=== PATIENT | female | born 1970 | race Caucasian/White ===

== ENCOUNTER 2017-09-17 16:40 | Observation (INO) | payer BC, SELFPAY ==
[2017-09-17] VITALS (9 sets, daily range): BP systolic 111–131; BP diastolic 71–78; PULSE 57–80; RESP 11–19; TEMP 36.2–36.7; O2SAT 96–99; BMI 31.8; BMI 31.6
--- NOTE | 2017-09-17 16:52 | EKG12_ITS ---
Test Reason : CP Blood Pressure : / mmHG Vent. Rate : 065 BPM Atrial Rate : 065 BPM P-R Int : 132 ms QRS Dur : 090 ms QT Int : 396 ms P-R-T Axes : 025 051 057 degrees QTc Int : 411 ms Normal sinus rhythm Nonspecific ST abnormality Abnormal ECG Confirmed by DIANELYS REAL, ASHLEY ([id number]), legal editor BLANE DUENAS ([id number] on 09/23/2017 3:09:45 PM Referred By: HOLDEN Confirmed By:ASHLEY IVORY MD
[2017-09-17 17:10] LABS: Absolute Lymphocyte Count 2.59 X10^3/ul (0.83-4.51); Absolute Neutrophil Count 6.5 X10^3/uL (2.0-7.7); Basophil# 0.02 X10^3/uL; Basophil% 0.2 % (0-1); Eosinophil# 0.08 X10^3/uL; Eosinophils% 0.8 % (0-5); Hematocrit 44.3 % (37-47); Hemoglobin 14.6 g/dl (12.0-15.0); Lymphocyte # 2.59 X10^3/ul (4.0); Lymphocyte % 26.2 % (19-41); Mean Corpuscular Hgb 29.7 pg (27.0-32.0); Mean Corpuscular Volume 90.2 fL (81-99); Mean Platelet Vol. 12.3 fl (6.2-12.0); Monocyte# 0.72 X10^3/uL; Monocyte% 7.3 % (0-10); Neutrophil # 6.46 X10^3/uL (2.7-7.7); Neutrophil % 65.4 % (47-70); Platelet Count 194 K/mm3 (150-450); RBC Distribution Width SD 42.6 fl (35.1-43.9); Red Blood Count 4.91 M/mm3 (4.2-5.4); White Blood Count 9.9 K/mm3 (4.4-11.0)
--- NOTE | 2017-09-17 17:10 | RAD_ITS ---
STUDY: X-RAY CHEST REASON FOR EXAM: Female, 46 years old. Chest pain TECHNIQUE: Frontal view of the chest COMPARISON: 02/15/2016 FINDINGS: The lungs are clear. There are no pleural effusions. There is no pneumothorax. The heart is normal in size. The visualized osseous structures are within normal limits. RAD/Chest 1 View (Portable) IMPRESSION: No acute thoracic pathology. Electronically Signed: Livan Patel, at 17:46 EDT Tel , Service support ,
[2017-09-17 17:11] LABS: POSITIVE COUNT NO; POSITIVE DIFFERENTIAL NO; POSITIVE MORPHOLOGY NO
--- NOTE | 2017-09-17 17:17 | ED.VISSUMM ---
- ER Visit Summary Date of Service: 09/17/17 Chief Complaint: Chest tightness History of Present Illness: The patient is a 46 F with history of coronary vascular disease status post cardiac catheterization in 2013 with 75% stenosis of her first diagonal branch presents to the emergency department with chest tightness. Patient states she has been in her normal state of health. Over the past week, she is just been more fatigued. She states that over the past 2 days, she has been having a lot more chest tightness. Today, she states it just felt like there was bricks on both of my shoulders I was mildly nauseated. It did radiate into her left neck. She states she has never really had pain like this before. She does admit some palpitations and does have a remote history of SVT. Patient states that since her heart catheterization 2013, she has had approximately 70 pound weight loss. She does not smoke. She states that she has been otherwise rather healthy. Physical Examination: Vital signs reviewed General: Well-nourished, well-developed Head: Normocephalic, atraumatic Eyes: Pupils equal and reactive, extraocular muscles intact Neck, supple, no lymphadenopathy Heart: Regular rate and rhythm Respiratory: No distress, clear bilaterally Abdomen: Soft, nontender, nondistended, no peritoneal signs Back: Nontender Extremities: Nontender, no edema, no cords Skin: Normal color no rash Neuro: Alert and oriented, no focal or lateralizing deficits Test Results: [] Emergency Department Course and Treatment: EKG was obtained the patient arrival. There is no evidence of acute ischemic change. She has significant improvement with sublingual nitro. Screening labs including cardiac enzymes and chest x-ray are all unremarkable. However, given the patient's characterization of the pain, risk factors, and history of coronary vascular disease I do feel she will benefit from admission for cardiac risk stratification. Patient was discussed with the hospitalist and will be admitted. Treatment Plan: [] Disposition: Admission Impression: Chest pain This note was generated with [employer] dictation software. It may contain incorrect words, spelling, and punctuation that were not noted in review of the chart prior to signing ED Disposition - Plan for ED Patient: Chief Complaint: Chest Pain
[2017-09-17 17:24] LABS: Anion Gap 8 (5-15); BUN 28 mg/dL (7-18); BUN/Creat Ratio 27.5 RATIO (10-20); Calcium,Total 8.6 mg/dL (8.5-10.1); Chloride 104 mmol/L (98-107); Creatinine, Serum 1.02 mg/dL (0.55-1.02); EST Glomerular Filtration Rate 62 mL/min (>60); Est Glom Filt Rate - Afr Amer 75 mL/min (>60); Estimated Creatinine Clearance 62.01 ml/min; Glucose 126 mg/dL (74-106); Potassium 3.6 mmol/L (3.5-5.1); Sodium Level 139 mmol/L (136-145)
[2017-09-17] MEDS: Aspirin 81 MG TAB.CHEW 324 MG PO (17:52)
--- NOTE | 2017-09-17 18:32 | HP.PCM_ITS ---
Problem List (1) Obesity (BMI 30-39.9) Status: Chronic (2) PSVT (paroxysmal supraventricular tachycardia) Status: Chronic (3) cad Status: Chronic Comment: 75% ostial dx medical rx cath 10/13 History of Present Illness Date of Admission: 09/17/17 Chief Complaint: Chest pain The patient is a 46 year old F with past medical history of coronary artery disease status post left heart catheterization in 2013 that revealed 75% of diagonal 1 stenosis but this could not be stented she was placed on medical management. The patient presented to [facility] complain of fatigue and chest tightness she reports nausea. She reports no shortness of breath, palpitations or rapid heartbeat. Workup in the emergency room is thus far unremarkable placing her in the hospital for further management. Past Medical History Past Medical History (Chronic Problems): Chronic Problems cad (Chronic) 75% ostial dx medical rx cath 10/13 Obesity (BMI 30-39.9) (Chronic) PSVT (paroxysmal supraventricular tachycardia) (Chronic) Allergies Iodinated Contrast- Oral and IV Dye Allergy (Verified 02/28/15 19:42) Hives Home Medications: Ambulatory Orders Medication Instructions Recorded Aspirin 81 mg PO QHS 02/15/16 Atorvastatin Calcium 40 mg PO DAILY 09/17/17 Cimetidine 200 mg PO QHS 09/17/17 Lisinopril/Hydrochlorothiazide 1 tablet PO QHS 09/17/17 [Zestoretic 20/25 Tablet] Metoprolol Succinate [Toprol Xl] 50 mg PO QHS 09/17/17 Smoking Status: Never smoker - *Family History Maternal History Items: No pertinent history Review of Systems Comment: All Systems were reviewed with pertinent positives mentioned in the HPI above. VTE Information - Inpt Only VTE Present on Admission: No VTE Mechan Device Prophylaxis: SCD's VTE Pharm Prophylaxis ordered?: No - Physical Exam Vital Signs Temp Pulse Resp BP Pulse Ox 97.2 F L 74 19 H 124/74 H 99 09/17/17 16:42 09/17/17 18:02 09/17/17 18:02 09/17/17 18:02 09/17/17 18:02 Oxygen Delivery Method Room Air Weight: 86.9 kg Body Mass Index (BMI) 31.8 Laboratory Tests Past 24 Hrs 09/17/17 09/17/17 16:55 16:55 WBC 9.9 RBC 4.91 Hgb 14.6 Hct 44.3 MCV 90.2 MCH 29.7 MCHC 33.0 RDW 13.0 RDW Differential 42.6 Plt Count 194 MPV 12.3 H Immature Gran % (Auto) 0.100 Neut % (Auto) 65.4 Lymph % (Auto) 26.2 [place] % (Auto) 7.3 Eos % (Auto) 0.8 Baso % (Auto) 0.2 Absolute Neuts (auto) 6.5 Absolute Lymphs (auto) 2.59 Total Counted Not Reportable Sodium 139 Potassium 3.6 Chloride 104 Carbon Dioxide 27.0 Anion Gap 8 BUN 28 H Creatinine 1.02 Estim Creat Clear Calc 62.01 Est GFR (MDRD) Af Amer 75 Est GFR (MDRD) Non-Af 62 BUN/Creatinine Ratio 27.5 H Glucose 126 H Calcium 8.6 Troponin I < 0.02 Assessment/Plan 1. Chest pain; this most likely represents angina, known coronary artery disease with more than 75% blockage of head D1 artery, this was not a stentable lesion and she was prescribed medical management. we will obtain serial cardiac enzymes, I will Place her on long-acting nitrates . will enlist Dr. Landers opinion. 2. Known coronary artery disease with >75% diagonal one lesion diagnosed in 2013, continue medical management for now. 3. Obesity; the patient is in ACTION stage of change and is losing weight. 4. History of PSVT; she is on a beta-jayla. 5. Early ambulation for DVT prophylaxis. Code Visit OBSV E&M: 32859 Initial observation care L3
[2017-09-18] VITALS (9 sets, daily range): BP systolic 100–143; BP diastolic 59–80; PULSE 59–81; RESP 15–16; TEMP 36.6–36.9; O2SAT 97–99
--- NOTE | 2017-09-18 07:32 | STEWCON_ITS ---
Reason For Study: CHEST PAIN Stress Results Protocol: Jameel Protocol Maximum Predicted HR: 174 bpm Target HR: 148 bpm% Max imum Predicted HR: 89 % DurationHeart Rate Stage (mm:ss) (bpm) BP BASELINE 61 122/80 STAGE 1 3:00 10 1 138/62 STAGE 2 3:00 12 3 130/78 STAGE 3 3:00 15 5 152/70 RECOVERY 90 120/64 Stress Duration: 9:00 mm:ss Maximum Stress HR: 155 bpm Baseline Echocardiogram Findings The estimated ejection fraction is 65 %. Stress Echo Wall motion Data Resting WMIntermediate WMStress WM Resting Wall Motion Wall Motion Stress No regional wall motion No regional wall motion abnormalities noted. abnormalities noted. EKG Data Normal intervals are noted. The patient exercised according to the regular Jameel protocol for a total duration of 9:00. The maximum heart rate attained was 155 beats per minute. This was 89% of maximum predicted heart rate. The patient exercised into stage 4 of the Jameel protocol. During stress, there were no ST or T wave changes noted to suggest ischemia. No clinical angina was noted. Interpretation Summary The study was technically difficult. Contrast injection was performed. The estimated ejection fraction is 65 %. Normal adequate treadmill echocardiogram. Negative for ischemia by EKG and echocardiographic criteria. No anginal symptoms noted. Rare PVC noted. Appropriate blood pressure response to exercise. Average exercise capacity for age. Decreased sensitivity due to poor echo windows requiring Definity enhancing agent. Final LVEF is 75%. Test terminated due to the attainment of target heart rate. Ordering Physician: Serafin Betts Referring Physician: SERAFIN BETTS Performed By: Kelsea Delarosa, [place], RVT
--- NOTE | 2017-09-18 07:34 | ECHOD_ITS ---
Reason For Study: CHEST PAIN Procedure This was a 2D Doppler, Color Flow transthoracic echocardiogram. Exam performed portable in patient room. Left Ventricle Normal size and thickness. The estimated ejection fraction is 65 %. Normal diastology for age. No regional wall motion abnormalities noted. Right Ventricle Normal size and thickness. Normal systolic function. Atria Normal left atrium. Normal right atrium. Normal atrial septum. Mitral Valve The mitral valve is structurally normal. No prolapse or stenosis seen. Tricuspid Valve Normal tricuspid valve. Unable to estimate RV systolic pressure/pulmonary artery pressure due to technically difficult study. Aortic Valve Normal aortic valve. Trisinus/trileaflet aortic valve. Pulmonic Valve Normal pulmonic valve. Trivial pulmonic valve insufficiency. Great Vessels Normal aortic root. Normal arch. Normal inferior vena cava. Inferior vena cava collapse with sniff. Pericardium/Pleural No pericardial effusion. MMode/2D Measurements & Calculations LVIDd: 4.9 cm IVSd: 1.5 cm Ao root diam: 2.7 cm LVIDs: 3.5 cm LVPWd: 1.2 cm LA dimension: 4.3 cm RVDd: 3.1 cm FS: 28.9 % LAV(MOD-bp): 69.5 ml LA A4 area: 21.4 cm2 RA A4 area: 17.8 cm2 LAV(MOD-bp) Indexed: 35.9 ml/m2 LAV(MOD-sp2): 69.9 ml LAV(MOD-sp4): 68.8 ml Doppler Measurements & Calculations MV E max ruslan: 85.2 cm/sec Lat Peak E' Ruslan: 11.0 cm/sec Med Peak E' Ruslan: 7.4 cm/sec MV A max ruslan: 50.6 cm/sec E/E' lat: 7.8 E/E' med: 11.6 MV E/A: 1.7 Ao V2 max: 135.2 cm/sec LV V1 max: 99.6 cm/sec PA V2 max: 92.9 cm/sec Ao max P.3 mmHg LV V1 max P.0 mmHg PI end-d ruslan: 126.6 cm/sec Interpretation Summary The estimated ejection fraction is 65 %. Normal diastology for age. Unable to estimate RV systolic pressure/pulmonary artery pressure due to technically difficult study. Compared to echo report dated 10/18/2013, LV function has improved from 50% to 65%. Ordering Physician: Amor Betts Referring Physician: Keon Vaughn Performed By: Kelsea Delarosa RDCS, RVT
--- NOTE | 2017-09-18 07:41 | EKG12_ITS ---
Test Reason : ROUTINE Blood Pressure : / mmHG Vent. Rate : 055 BPM Atrial Rate : 055 BPM P-R Int : 130 ms QRS Dur : 090 ms QT Int : 428 ms P-R-T Axes : 003 044 055 degrees QTc Int : 409 ms Sinus bradycardia with sinus arrhythmia Confirmed by DIANELYS REAL, ASHLEY ([id number]), make up editor BLANE DUENAS ([id number]) on 09/19/2017 1:24:09 PM Referred By: DR VALDES Confirmed By:ASHLEY IVORY MD
[2017-09-18 07:58] LABS: Absolute Lymphocyte Count 2.47 X10^3/ul (0.83-4.51); Absolute Neutrophil Count 3.7 X10^3/uL (2.0-7.7); Basophil# 0.02 X10^3/uL; Basophil% 0.3 % (0-1); Eosinophils% 1.4 % (0-5); Hematocrit 44.4 % (37-47); Hemoglobin 14.5 g/dl (12.0-15.0); Lymphocyte # 2.47 X10^3/ul (4.0); Mean Corp Hgb Conc 32.7 g/gl (32-36); Mean Corpuscular Hgb 29.8 pg (27.0-32.0); Mean Corpuscular Volume 91.2 fL (81-99); Mean Platelet Vol. 12.5 fl (6.2-12.0); Monocyte# 0.76 X10^3/uL; Monocyte% 10.8 % (0-10); Neutrophil # 3.69 X10^3/uL (2.7-7.7); Neutrophil % 52.4 % (47-70); Platelet Count 181 K/mm3 (150-450); RBC Distribution Width CV 13.1 % (11.6-14.6); RBC Distribution Width SD 43.5 fl (35.1-43.9); Red Blood Count 4.87 M/mm3 (4.2-5.4); White Blood Count 7.1 K/mm3 (4.4-11.0)
[2017-09-18 07:59] LABS: POSITIVE COUNT NO; POSITIVE DIFFERENTIAL NO; POSITIVE MORPHOLOGY NO
[2017-09-18] MEDS: Lisinopril 20 MG Tablet PO (08:04)
[2017-09-18] MEDS: Aspirin 81 MG TAB.CHEW PO (08:04)
[2017-09-18 08:06] LABS: Anion Gap 9 (5-15); BUN 22 mg/dL (7-18); BUN/Creat Ratio 30.5 RATIO (10-20); Calcium,Total 8.6 mg/dL (8.5-10.1); Chloride 107 mmol/L (98-107); Creatinine, Serum 0.72 mg/dL (0.55-1.02); EST Glomerular Filtration Rate 92 mL/min (>60); Est Glom Filt Rate - Afr Amer 112 mL/min (>60); Estimated Creatinine Clearance 87.85 ml/min; Glucose 101 mg/dL (74-106); Sodium Level 142 mmol/L (136-145)
[2017-09-18 08:55] LABS: Prothrombin Time (Protime)PT. 13.6 SECONDS (11.7-14.9)
--- NOTE | 2017-09-18 09:08 | PCM.CONS.C ---
Problem List (1) Chest pain Status: Acute (2) cad Status: Chronic Comment: 75% ostial dx medical rx cath 10/13 (3) PSVT (paroxysmal supraventricular tachycardia) Status: Chronic Reason for Consult Date of Consultation: 09/18/17 Reason for Consultation: Chest pain, coronary artery disease, paroxysmal supraventricular tachycardia, hypercholesterolemia History of Present Illness: The patient is a 46 year old F, nondiabetic, with hypertension, hypercholesterolemia, originally presented in 2014 with substernal chest pain. She underwent an echocardiogram which showed mild global LV dysfunction with an EF of 50%. In addition I performed a left her catheterization on her in 2013 which demonstrated an ostial diagonal stenosis of about 60%. Given the ostial nature of the diagonal branch and the lack of disease in the LAD, patient's coronary disease with left for medical management. Unfortunately patient did not follow-up with me. Nonetheless, patient is not smoking cigarettes but occasionally smokes cigars, has had a 75 pound weight loss by avoidance of carbohydrates and red meat, exercises by punching on a punching bag and is asymptomatic up until the day of admission. Last week the patient had an episode of extreme tiredness and fatigue, felt run down and did not have much activity but had no chest pain symptoms. Yesterday the patient developed substernal chest pressure which she described as a heaviness radiating to her left shoulder also described as a heaviness. Patient had some very minimal shortness of breath associated with this, and apparently was with no exertion. When things did not improve she sought medical attention at [facility] ER. Her initial EKG showed normal sinus rhythm, no acute changes. She was admitted and ruled out for myocardial infarction with troponins negative ?4. This morning she underwent a 2D echo with Doppler which showed actually marked improvement of her LV function from 50% to 65%, unable to quantitate RVSP. Currently she is resting comfortably. Stress echocardiogram pending. The patient denied having any fevers, chills, flulike symptoms, cough or diarrhea last week to explain her feeling of being run down. The patient also apparently has a diagnosis by history of paroxysmal supraventricular tachycardia, and the patient is uncertain whether she had any palpitations but she does not think so. The patient does have a allergy to IV contrast dye, and should she require catheterization will need to be prepped for this. [] Past Medical History Allergies/Adverse Reactions: Allergies Iodinated Contrast- Oral and IV Dye Allergy (Verified 02/28/15 19:42) Hives Home Medications: Ambulatory Orders Medication Instructions Recorded Aspirin 81 mg PO QHS 02/15/16 Atorvastatin Calcium 40 mg PO DAILY 09/17/17 Cimetidine 200 mg PO QHS 09/17/17 Lisinopril/Hydrochlorothiazide 1 tablet PO QHS 09/17/17 [Zestoretic 20/25 Tablet] Metoprolol Succinate [Toprol Xl] 50 mg PO QHS 09/17/17 Past Medical History (Chronic Problems): Chronic Problems cad (Chronic) 75% ostial dx medical rx cath 10/13 Obesity (BMI 30-39.9) (Chronic) PSVT (paroxysmal supraventricular tachycardia) (Chronic) - *Family History Maternal History Items: No pertinent history Smoking Status: Never smoker Tobacco Use: Cigars Review of Systems - Review of Systems General: Denies: Fever, Night Sweats, Fatigue Cardiovascular: Denies: Chest Discomfort, Shortness of Breath, Orthopnea, PND, Peripheral Edema, Palpitations, Lightheadedness, Dizziness, Near Syncope, Syncope Respiratory: Denies: Cough, Sputum Production, Hemoptysis Gastrointestinal: Denies: Hematemesis, Hematochezia, Melena Genitourinary: Denies: Dysuria, Hematuria Skin: Denies: Rash Subjectve: Patient laying in bed, no acute distress. Objective: Vital Signs Temp Pulse Resp BP Pulse Ox 97.9 F 75 16 143/73 H 99 09/18/17 08:00 09/18/17 08:00 09/18/17 08:00 09/18/17 08:00 09/18/17 08:00 Oxygen Delivery Method Room Air Weight: 190 lb 0.615 oz Body Mass Index (BMI) 31.6 Intake and Output for Last 24 Hours 09/16/17 09/17/17 09/18/17 23:59 23:59 23:59 Intake Total 220 / 220 120 / 120 Balance 220 / 220 120 / 120 General: Awake, Alert, Oriented x 3 HEENT: PERRL, EOMI, Sclera Non Icteric Neck: Supple, Good ROM, No Lymph Node Enlargement Lungs: Clear to auscultation Cardiovascular: Regular Rhythm, Normal S1, Normal S2, No Murmurs, No Rubs, No Gallops Vascular: No Carotid Bruits, Normal Femoral Pulses, Normal Radial Pulses, Normal Dorsalis Pedal Pulse, Normal Posterior Tibial Pulses Abdomen: Bowel Sounds Present, Soft, Non Tender, No HSM, No Organomegaly Extremities: No Cyanosis, No Clubbing, No edema Neurological: No Focal Motor or Sensory Deficit 09/17/17 20:30: Troponin I < 0.02 09/18/17 00:30: Troponin I < 0.02 09/18/17 06:35: Troponin I < 0.02 09/18/17 06:35: WBC 7.1, RBC 4.87, Hgb 14.5, Hct 44.4, MCV 91.2, MCH 29.8, MCHC 32.7, RDW 13.1, RDW Differential 43.5, Plt Count 181, MPV 12.5 H, Immature Gran % (Auto) 0.100, Neut % (Auto) 52.4, Lymph % (Auto) 35.0, [place] % (Auto) 10.8 H, Eos % (Auto) 1.4, Baso % (Auto) 0.3, Absolute Neuts (auto) 3.7, Total Counted Not Reportable 09/18/17 06:35: Sodium 142, Potassium 4.0, Chloride 107, Carbon Dioxide 26.0, Anion Gap 9, BUN 22 H, Creatinine 0.72, Est GFR (MDRD) Af Amer 112, Est GFR (MDRD) Non-Af 92, BUN/Creatinine Ratio 30.5 H, Glucose 101, Calcium 8.6 09/18/17 07:50: PT 13.6, INR 1.0, APTT 32.0 Rhythm: Normal sinus rhythm, no arrhythmias noted. EKG: As above ECHO: As above Stress Test: Pending Cardiac Cath: PCI: CT Surgery: Holter monitor: EPS: PPM: CXR: Chest CT Scan: Assessment/Plan 1. Chest pain: Patient developed atypical nonexertional substernal chest heaviness radiating to her shoulder with associated mild shortness of breath. This appeared to be mostly nonexertional, although the patient has not been feeling well over the last week, feeling rundown and tired. The patient's echocardiogram shows complete normalization of her LV function as opposed to her echo in 2014. Her EF is 65% and we were unable to quantitate her RVSP. Patient's troponins are negative ?4, but she has known ostial diagonal coronary artery disease which is been treated with medicines although she has had no follow-up with us in the office since that time. I recommend the patient undergo a treadmill echocardiogram to determine if she has any evidence of anterior lateral ischemia with respect to her previously known coronary disease of her diagonal branch. The patient has exertional symptoms, or evidence of anterior ischemia, I have a low threshold for repeating her diagnostic coronary angiogram and possibly pursuing balloon angioplasty and/or stenting of the ostium of the diagonal branch. Intervention of this area is somewhat problematic given the acute nature of the diagonal branch as the stent may prolapse into the LAD. In addition I recommend a test given her young age, as well as a CRP to determine if the patient has possible pericarditis to explain her symptoms. In addition the patient apparently has an IV contrast dye allergy, would require IV contrast dye allergy preparation such as Benadryl, IV Pepcid 20 mg, and Solu-Medrol 125 mg IV. In the meantime we will continue baby aspirin, Lopressor, Imdur, Zestril, and hydrochlorothiazide for her hypertension. Her blood pressure is optimized. 2. Hyperlipidemia: Recommend a fasting lipid profile with respect to her known coronary disease. Her LDL should be less than 70. Continue Lipitor. 3. Thank you very much for the opportunity to participate in the cardiac care of your patient. Consultation time took place between 845 and 915. Code Visit Inpatient E&M: 29148 Init Hosp L2
[2017-09-18 09:39] LABS: CRP, High Sensitivity Cardiac 0.71 mg/L; Cholesterol 148 mg/dL (200); High Density Lipoprotein 65 mg/dL; Triglycerides 76 mg/dL; Very Low Density Lipoprotein 15 mg/dL (5-40)
[2017-09-18] MEDS: hydroCHLOROthiazide 25 MG Tablet PO (11:11)
[2017-09-18] MEDS: Isosorbide Mononitrate 60 MG Tablet PO (11:11)
[2017-09-18] MEDS: Metoprolol(XL)Succ 50 MG Tablet PO (11:11)
[2017-09-18] MEDS: Famotidine 20 MG Tablet PO (11:11)
[2017-09-18 12:12] LABS: Internal QC Validated? YES +Cl - CLEAR BKGD; Pregnancy, Urine Negative Negative
--- NOTE | 2017-09-18 13:38 | PN_ITS ---
Patient Problems: Active and Suspected Problems Chest pain (Acute) Subjective: Pt reports chest discomfort is gone this AM. She states it was more a shoulder heaviness that felt like when she had her last cath. She is not SOB. She has no LH/dizziness, or Palp. Stress test is pending. She had prior cath with 60% blockage of ostial diagonal and medical therapy was advised at that time. - Physical Exam General: Alert, Oriented x3, Cooperative HEENT: Atraumatic, PERRLA, EOMI, Normocephalic Neck: Supple, No JVD, Negative Carotid Bruits Lungs: Clear to auscultation, Normal air movement Cardiovascular: Regular rate, No murmurs Abdomen: Bowel Sounds Present, Soft, Non Tender Extremities: No edema, Capillary Refill Less than 3 Seconds Skin: No rashes, No breakdown Musculoskeletal: No Tenderness to Palpation of Joints or Extremities Neurological: Cranial nerves II-XII grossly intact Psych/Mental Status: Normal Affect, Appropriate, Alert and oriented to time, place, person, mood and affect Vital Signs Temp Pulse Resp BP Pulse Ox 97.9 F 79 16 143/80 H 99 09/18/17 08:00 09/18/17 11:17 09/18/17 08:00 09/18/17 10:05 09/18/17 08:00 Oxygen Delivery Method Room Air Weight: 86.2 kg Body Mass Index (BMI) 31.6 Intake and Output for Last 24 Hours 09/16/17 09/17/17 09/18/17 23:59 23:59 23:59 Intake Total 220 / 220 360 / 360 Balance 220 / 220 360 / 360 Laboratory Tests Past 24 Hrs 09/17/17 09/18/17 09/18/17 20:30 00:30 06:35 WBC RBC Hgb Hct MCV MCH MCHC RDW RDW Differential Plt Count MPV Immature Gran % (Auto) Neut % (Auto) Lymph % (Auto) [place] % (Auto) Eos % (Auto) Baso % (Auto) Absolute Neuts (auto) Absolute Lymphs (auto) Total Counted PT INR APTT Sodium Potassium Chloride Carbon Dioxide Anion Gap BUN Creatinine Estim Creat Clear Calc Est GFR (MDRD) Af Amer Est GFR (MDRD) Non-Af BUN/Creatinine Ratio Glucose Calcium Troponin I < 0.02 < 0.02 < 0.02 C-React Prot High Sens Triglycerides Cholesterol LDL Cholesterol VLDL Cholesterol HDL Cholesterol Urine Test 09/18/17 09/18/17 09/18/17 06:35 06:35 07:50 WBC 7.1 RBC 4.87 Hgb 14.5 Hct 44.4 MCV 91.2 MCH 29.8 MCHC 32.7 RDW 13.1 RDW Differential 43.5 Plt Count 181 MPV 12.5 H Immature Gran % (Auto) 0.100 Neut % (Auto) 52.4 Lymph % (Auto) 35.0 [place] % (Auto) 10.8 H Eos % (Auto) 1.4 Baso % (Auto) 0.3 Absolute Neuts (auto) 3.7 Absolute Lymphs (auto) 2.47 Total Counted Not Reportable PT 13.6 INR 1.0 APTT 32.0 Sodium 142 Potassium 4.0 Chloride 107 Carbon Dioxide 26.0 Anion Gap 9 BUN 22 H Creatinine 0.72 Estim Creat Clear Calc 87.85 Est GFR (MDRD) Af Amer 112 Est GFR (MDRD) Non-Af 92 BUN/Creatinine Ratio 30.5 H Glucose 101 Calcium 8.6 Troponin I C-React Prot High Sens Triglycerides Cholesterol LDL Cholesterol VLDL Cholesterol HDL Cholesterol Urine Test 09/18/17 09/18/17 07:50 11:15 WBC RBC Hgb Hct MCV MCH MCHC RDW RDW Differential Plt Count MPV Immature Gran % (Auto) Neut % (Auto) Lymph % (Auto) [place] % (Auto) Eos % (Auto) Baso % (Auto) Absolute Neuts (auto) Absolute Lymphs (auto) Total Counted PT INR APTT Sodium Potassium Chloride Carbon Dioxide Anion Gap BUN Creatinine Estim Creat Clear Calc Est GFR (MDRD) Af Amer Est GFR (MDRD) Non-Af BUN/Creatinine Ratio Glucose Calcium Troponin I C-React Prot High Sens 0.71 Triglycerides 76 Cholesterol 148 LDL Cholesterol 68 VLDL Cholesterol 15 HDL Cholesterol 65 Urine Test Negative Medical Necessity - Tobacco Use Smoking Status: Never smoker Tobacco Use: Cigars Assessment/Plan Active and Suspected Problems Chest pain (Acute) 1. Chest pain with known CAD and blockage of ostial diagonal - Dr. Betts following. Nitrate added at admission and now no CP. Stress pending. EKG with sinus arrhythmia. Trop neg x 4. No events on cody. VSS. LDL 68. Continue asa, statin, HCTZ, Imdur, REE, Toprol. If cath'd will need solumedrol, benadryl, pepcid for iodine allergy. 2. Hx PSVT - controlled 3. Obesity - in dietary program and recently has lost 75 pounds. DVT ppx: SCDs DC planning: pending results of stress/need for cath This patient was seen by Mj Hector PA-C under the supervision of Doctor Muniz.
--- NOTE | 2017-09-18 15:50 | PCM.DC ---
- Discharge Diagnoses Current Active Problems: Current Active and Chronic Problems Chest pain (Acute) You will use the following diet at home:: Cardiac Your food should be the consistency of: Regular Your liquids should be the consistency of: Regular/Thin Discharge Activity: Return to Normal Activity Allergies/Adverse Reactions: Allergies Iodinated Contrast- Oral and IV Dye Allergy (Verified 02/28/15 19:42) Hives Medications to take at Discharge Aspirin 81 mg PO QHS 02/15/16 Atorvastatin Calcium 40 mg PO DAILY 09/17/17 Cimetidine 200 mg PO QHS 09/17/17 Lisinopril/Hydrochlorothiazide [Zestoretic 20/25 Tablet] 1 tablet PO QHS 09/17/17 Metoprolol Succinate [Toprol Xl] 50 mg PO QHS 09/17/17 Isosorbide Mononitrate [Imdur] 30 mg PO DAILY #30 tab 09/18/17 The following prescriptions were given: Isosorbide Mononitrate [Imdur] 30 mg PO DAILY #30 tab Primary Care Physician: Michael Rodríguez MD [STAFF PHYSICIAN] - Please follow up with your Primary Care Physician in: 1-2 weeks Please Follow Up With: Amor Betts MD When: 4 weeks Proposed Discharge Date: 09/18/17
--- NOTE | 2017-09-18 15:52 | PCM.DC.SUM ---
Discharge Date and Diagnosis - Problem List Patient Problems: Active and Suspected Problems Chest pain (Acute) Date of Admission: 09/17/17 Date of Discharge: 09/18/17 - Primary Discharge Diagnosis Active and Suspected Problems Chest pain (Acute) - angina HTN PSVT CAD Obesity - Secondary Discharge Diagnosis Chronic Problems cad (Chronic) 75% ostial dx medical rx cath 10/13 Obesity (BMI 30-39.9) (Chronic) PSVT (paroxysmal supraventricular tachycardia) (Chronic) Hospital Course and Treatment Imaging Results: Stress Echo: Interpretation Summary The study was technically difficult. Contrast injection was performed. The estimated ejection fraction is 65 %. Normal adequate treadmill echocardiogram. Negative for ischemia by EKG and echocardiographic criteria. No anginal symptoms noted. Rare PVC noted. Appropriate blood pressure response to exercise. Average exercise capacity for age. Decreased sensitivity due to poor echo windows requiring Definity enhancing agent. Final LVEF is 75%. Test terminated due to the attainment of target heart rate. Echo: Interpretation Summary The estimated ejection fraction is 65 %. Normal diastology for age. Unable to estimate RV systolic pressure/pulmonary artery pressure due to technically difficult study. Compared to echo report dated 10/18/2013, LV function has improved from 50% to 65%. RAD/Chest 1 View (Portable) IMPRESSION: No acute thoracic pathology. Consults: Alpesh - cardiology Operations: None Procedures: Stress test Summary of Care Provided: Physical exam on day of discharge: See daily progress note. Hospital course: The patient is a 46 year old F with a hx of CAD with known 60% stenosis of the ostial diagonal, pt of Dr. Betts, who also has HTN, Obesity with recent 70 lb weight loss on a diet plan, and PSVT, who presented to the ER with chest pain described as shoulder heaviness similar to her prior episode where was underwent heart cath. EKG was negative, troponin neg, CXR neg. She was admitted for CP rule out and since she had known coronary disease. This was found in 2013 by cath, for which medical treatment was advised at that time. Dr Betts was consulted. She was placed on imdur and maintained on tele, with repeat enzymes. Stress test was performed the following day. This was negative. She had no further chest discomfort. Dr. Betts advised her to follow up in 1 month. She was also advised to follow up with her PCP in 1-2 weeks. She was prescribed imdur 30 mg daily. She was discharged home in stable condition. This patient was seen by Mj Hector PA-C under the supervision of Doctor Flavio. [] Discharge Activity: Return to Normal Activity Home Medications: Medications to take at Discharge Aspirin 81 mg PO QHS 02/15/16 Atorvastatin Calcium 40 mg PO DAILY 09/17/17 Cimetidine 200 mg PO QHS 09/17/17 Lisinopril/Hydrochlorothiazide [Zestoretic 20/25 Tablet] 1 tablet PO QHS 09/17/17 Metoprolol Succinate [Toprol Xl] 50 mg PO QHS 09/17/17 Isosorbide Mononitrate [Imdur] 30 mg PO DAILY #30 tab 09/18/17 Following Prescrptions Were Given to Patient: Isosorbide Mononitrate [Imdur] 30 mg PO DAILY #30 tab Primary Care Physician: Michael Rodríguez MD [STAFF PHYSICIAN] - Please follow up with your Primary Care Physician in: 1-2 weeks Please Follow Up With: Amor Betts MD When: 4 weeks Medical Necessity - Tobacco Use Smoking Status: Never smoker Tobacco Use: Cigars Meaningful Use Info Meaningful Use Diagnoses (Choose all that apply): None applicable
--- NOTE | 2017-09-18 16:01 | DS.PCM_ITS ---
Discharge Date and Diagnosis - Problem List Patient Problems: Active and Suspected Problems Chest pain (Acute) Date of Admission: 09/17/17 Date of Discharge: 09/18/17 - Primary Discharge Diagnosis Active and Suspected Problems Chest pain (Acute) - angina HTN PSVT CAD Obesity - Secondary Discharge Diagnosis Chronic Problems cad (Chronic) 75% ostial dx medical rx cath 10/13 Obesity (BMI 30-39.9) (Chronic) PSVT (paroxysmal supraventricular tachycardia) (Chronic) Hospital Course and Treatment Imaging Results: Stress Echo: Interpretation Summary The study was technically difficult. Contrast injection was performed. The estimated ejection fraction is 65 %. Normal adequate treadmill echocardiogram. Negative for ischemia by EKG and echocardiographic criteria. No anginal symptoms noted. Rare PVC noted. Appropriate blood pressure response to exercise. Average exercise capacity for age. Decreased sensitivity due to poor echo windows requiring Definity enhancing agent. Final LVEF is 75%. Test terminated due to the attainment of target heart rate. Echo: Interpretation Summary The estimated ejection fraction is 65 %. Normal diastology for age. Unable to estimate RV systolic pressure/pulmonary artery pressure due to technically difficult study. Compared to echo report dated 10/18/2013, LV function has improved from 50% to 65 %. RAD/Chest 1 View (Portable) IMPRESSION: No acute thoracic pathology. Consults: Alpesh - cardiology Operations: None Procedures: Stress test Summary of Care Provided: Physical exam on day of discharge: See daily progress note. Hospital course: The patient is a 46 year old F with a hx of CAD with known 60% stenosis of the ostial diagonal, pt of Dr. Betts, who also has HTN, Obesity with recent 70 lb weight loss on a diet plan, and PSVT, who presented to the ER with chest pain described as shoulder heaviness similar to her prior episode where was underwent heart cath. EKG was negative, troponin neg, CXR neg. She was admitted for CP rule out and since she had known coronary disease. This was found in 2013 by cath, for which medical treatment was advised at that time. Dr eBtts was consulted. She was placed on imdur and maintained on tele, with repeat enzymes. Stress test was performed the following day. This was negative. She had no further chest discomfort. Dr. Betts advised her to follow up in 1 month. She was also advised to follow up with her PCP in 1-2 weeks. She was prescribed imdur 30 mg daily. She was discharged home in stable condition. This patient was seen by Mj Hector PA-C under the supervision of Doctor Flavio. [] Discharge Activity: Return to Normal Activity Home Medications: Medications to take at Discharge Aspirin 81 mg PO QHS 02/15/16 Atorvastatin Calcium 40 mg PO DAILY 09/17/17 Cimetidine 200 mg PO QHS 09/17/17 Lisinopril/Hydrochlorothiazide [Zestoretic 20/25 Tablet] 1 tablet PO QHS Metoprolol Succinate [Toprol Xl] 50 mg PO QHS 09/17/17 Isosorbide Mononitrate [Imdur] 30 mg PO DAILY #30 tab 09/18/17 Following Prescrptions Were Given to Patient: Isosorbide Mononitrate [Imdur] 30 mg PO DAILY #30 tab Primary Care Physician: Michael Rodríguez MD [STAFF PHYSICIAN] - Please follow up with your Primary Care Physician in: 1-2 weeks Please Follow Up With: Amor Betts MD When: 4 weeks Medical Necessity - Tobacco Use Smoking Status: Never smoker Tobacco Use: Cigars Meaningful Use Info Meaningful Use Diagnoses (Choose all that apply): None applicable
== END 2017-09-18 15:51 | disposition home or self-care (01) ==
LOC: ED 18:33 → PCU 18:39
PROVIDERS: Internal Medicine Cardiovascular Disease; Admitting Provider Internal Medicine; Emergency Provider Emergency Medicine; Family Provider Family Medicine; PCP Family Medicine; Visit Provider Internal Medicine
DX: R07.89 Other chest pain (principal); I25.10 Atherosclerotic heart disease of native coronary artery without angina pectoris; I47.1 Supraventricular tachycardia; F17.290 Nicotine dependence, other tobacco product, uncomplicated; E66.9 Obesity, unspecified; E78.5 Hyperlipidemia, unspecified; Z68.31 Body mass index [BMI] 31.0-31.9, adult; Z71.3 Dietary counseling and surveillance; Z79.899 Other long term (current) drug therapy; Z79.82 Long term (current) use of aspirin
CPT/HCPCS: 36415; 71045; 80048; 80061; 81025; 84484; 85025; 85610; 85730; 86141; 93005; 93017; 93306; 93350; 99218; 99285; 99406; Q9957; A4216; C8928; G0378

== ENCOUNTER 2023-07-09 14:41 | Emergency (ER) | payer OTHER, SELFPAY ==
[2023-07-09 14:41] VITALS: BP 164/83; PULSE 78; RESP 16; TEMP 36.6; O2SAT 99; BMI 30.9
--- NOTE | 2023-07-09 15:12 | US_ITS ---
STUDY: ULTRASOUND TRANSVAGINAL CLINICAL: Female, 52 years old. Pelvic pain, enlarged uterus on bimanual TECHNIQUE: Transvaginal COMPARISON: None. FINDINGS: Normal uterine size measuring 7.7 x 5.6 x 4.1 cm in maximal craniocaudal dimension. There are no myometrial masses. Normal endometrial thickness measuring 7 mm. There are no endometrial masses, and there is no fluid in the endometrial cavity. Nabothian cyst of the uterine cervix. Normal right ovary, measuring 2.9 x 2.2 x 1.1 cm. There is 0.8 cm cyst. There is normal blood flow. Normal left ovary, measuring 2.2 x 1.1 x 1.1 cm. There are multiple follicles without a dominant cyst. There is normal blood flow. There is no free fluid in the pelvis. Polycystic ovary disease: No. US/Transvaginal Non- IMPRESSION: No definite acute or significant abnormality seen. Electronically Signed: Ranjeet Ferrera MD at 16:45 EST ,
--- NOTE | 2023-07-09 15:29 | ED.VIS.FEGU ---
HPI HPI - Female History of Present Illness Chief Complaint: Female C/O Detail of Chief Complaint: Concern for prolapsed uterus Informant: patient Pain Pain: Positive for Pelvic Pain Onset: Yesterday Timing: Continuous and Waxes and wanes Quality: Positive for Aching Current Severity: Mild Maximum Severity: Moderate Bleeding Issue: Negative for Vaginal bleeding Associated Symptoms Associated Symptoms: Positive for Frequency and Urgency; Negative for Dysuria or Hematuria Sexually: Positive for Active P: 3 Narrative Narrative: Patient is a 52-year-old woman who presents because of concern for prolapsed uterus. She had some discomfort yesterday. This morning she noted a bulge when she stood. She has discomfort in the pelvic area. She does have urgency and frequency. She feels that she does not completely void. She has not seen a show host/hostess in some time. She is diabetic and does not check her blood sugar regularly. She does endorse polyuria, polydipsia and nocturia as well as frequency. She denies fever, chills night sweats. She denies nausea, vomiting or diarrhea. She denies constipation. She has no history of abdominal surgery. She denies back or flank pain. Prior similar symptoms: No Recent Illness/Hospitalization: No PFSH PFSH Medical History Diabetes Hypertension Past heart attack Home Medications aspirin 81 mg chewable tablet 81 mg PO QHS health maintenance 02/15/16 [History Last Taken 09/16/17] cimetidine 200 mg tablet 200 mg PO QHS stomach acid 09/17/17 [History Last Taken 09/16/17] Allergy/AdvReac Type Severity Reaction Status Date / Time Iodinated Contrast Media Allergy Hives Verified 07/09/23 14:43 Social History (Updated 07/09/23 @ 15:[address] Marcus Castañeda MD) household members: spouse Smoking Status: Never smoker ROS ROS ED Constitutional Constitutional ED: Denies chills, fever(s), subjective or sweats Cardiovascular Cardiovascular: Denies chest pain or palpitations Respiratory/Chest Respiratory/Chest: Denies cough, dyspnea or dyspnea on exertion Gastrointestinal Gastrointestinal: Reports abdominal pain; Denies diarrhea, melena, nausea or vomiting Genitourinary Genitourinary ED: Reports urinary frequency; Denies dysuria or hematuria Musculoskeletal Musculoskeletal: Denies arthralgias, myalgias or neck pain Integumentary Denies rash Neurologic Neurologic: Denies headache(s), paresthesias or weakness Endocrine Endocrinology: Reports polydipsia and polyuria Hematologic/Lymphatic Hematologic/Lymphatic: Denies easy bleeding or easy bruising EXAM Physical Exam Const Vital Signs: 07/09/23 14:41 07/09/23 16:41 Temperature 97.8 F Temperature Source Temporal Pulse Rate 78 79 Respiratory Rate 16 16 Blood Pressure 164/83 H 159/89 H Blood Pressure Mean 110 112 Pulse Ox 99 99 Oxygen Delivery Method Room Air Room Air Positive well nourished and well developed General Appearance ED: well developed and NAD; Negative for pallor HEENT Reports moist mucous membranes HEENT Narrative: Head is atraumatic and normocephalic. Eyes PERRL and EOMs intact bilaterally General Eye ED: Negative for pale conjunctiva or scleral icterus Neck supple and no JVD Resp normal respiratory effort and clear to auscultation bilaterally Cardio regular rate, regular rhythm, S1 normal heart sound, no murmurs and no JVD GI normal to inspection, nondistended, normoactive bowel sounds, soft to palpation, non-distended and no masses; Negative for non-tender Palpation: tender suprapubic Narrative: Urethra appears normal. There appears to be a cystocele. Vaginal mucosa and cervical mucosa are atrophied. Bimanual exam elicited tenderness with pressure against the cervix. The uterus is large. Since patient is complaining of pain and has an enlarged uterus has not seen a show host/hostess in years we will obtain a pelvic ultrasound. Since she has symptoms of hyperglycemia we will obtain a BGT. Back/Spine no CVA tenderness Thoracic Spine / Upper Back: Negative for thoracic spinal tenderness Lumbar Spine / Lower Back: Negative for lumbar spinal tenderness Extremity normal to inspection and full ROM Neuro oriented x3, CN's II-XII intact bilaterally and no sensory deficits noted Sensorium / Orientation: alert Skin no rashes or lesions noted and no wounds General Skin Exam: Negative for jaundice or pallor MDM MDM MDM Narrative Medical decision making narrative: Patient has a cystocele will need referred to DERMATOLOGICAL SURGEON. Will obtain BGT to assess blood sugar since she is not not compliant with checking her blood sugar and diet. Also will obtain ultrasound because of the enlarged uterus on bimanual exam. Differential may be fibroids, neoplasm Lab Data Attestation: I reviewed the patient's lab results. Lab results narrative: White count is normal. BMP is remarkable glucose of 645 with normal CO2 anion gap. Urine is positive for glucose urea and leukoesterase. She does have evidence of pyuria without bacteriuria. Labs: Laboratory Results - last 24 hr 07/09/23 07/09/23 15:44 15:50 WBC 6.1 RBC 4.90 Hgb 14.5 Hct 42.5 MCV 86.7 MCH 29.6 MCHC 34.1 RDW Std Deviation 38.3 RDW Coeff of Nohelia 11.9 Plt Count 145 L MPV 13.0 H Immature Gran % (Auto) 0.200 Neut % (Auto) 66.2 Lymph % (Auto) 25.7 [place] % (Auto) 6.9 Eos % (Auto) 0.7 Baso % (Auto) 0.3 Absolute Neuts (auto) 4.0 Absolute Lymphs (auto) 1.56 Nucleated RBC % 0 Sodium 133 L Potassium 4.1 Chloride 102 Carbon Dioxide 25.0 Anion Gap 6 BUN 13 Creatinine 0.87 Estim Creat Clear Calc 81.19 Est GFR (MDRD) Af Amer 87 Est GFR (MDRD) Non-Af 72 BUN/Creatinine Ratio 14.9 Glucose 645 H* Calcium 9.6 Urine Color Straw Urine Clarity Clear Urine pH 6.0 Ur Specific [place] 1.010 Urine Protein Negative Urine Glucose (UA) 1000 H Urine Ketones Negative Urine Occult Blood Negative Urine Nitrite Negative Urine Bilirubin Negative Urine Urobilinogen Normal Ur Leukocyte Esterase 100 H Urine RBC 0 SEEN Urine WBC 10-25 SEEN Ur Squamous Epith Cells 0-5 SEEN Urine Bacteria 0 SEEN Urine Mucus 0 SEEN Patient was informed of her laboratory results. She informed that she has not been taking her oral diabetic meds. She was informed of the importance of taking her medicine and what the potential complications are. She was referred to Dr. Geri Jeffers for cystocele since she does not have a DERMATOLOGICAL SURGEON and Dr. Geri Jeffers is on-call for DERMATOLOGICAL SURGEON. Radiography Diagnostic Testing: Clinical Impression(s) from Imaging Studies Transvaginal US 07/09/23 15:12 IMPRESSION: No definite acute or significant abnormality seen. Electronically Signed: Ranjeet Ferrera MD at 16:45 EST , Ultrasound report was read. Discharge Plan Triage Chief Complaint: Female C/O Other Complaint: Complaint ED Provider: Marcus Castañeda Dx/Rx/DC Orders Clinical Impression: Cystocele, Obesity (BMI 30-39.9), Hyperglycemia due to type 2 diabetes mellitus Instructions: Anatomy of the Female Urinary Tract, ED Diabetic Hyperglycemia, ED Diet: Diabetes Prescriptions: No Action aspirin 81 MG tablet,chewable 81 mg PO QHS cimetidine 200 MG tablet 200 mg PO QHS Primary Care Provider: Keon Vaughn Referrals: Keon Vaughn MD [Primary Care Provider] - 1 Week Geri Jeffers MD [Med Staff - Active Staff] - 1-2 Weeks Activity Restrictions/Additional Instructions: 1. You will need to follow-up with your doctor for further testing and education regarding the importance of compliance with your diet and medication for your diabetes. 2. You are referred to Dr. Geri Jeffers regarding your cystocele. Disposition Disposition: Home, Self Care
[2023-07-09 15:58] LABS: Bacteria 0 SEEN /hpf (None Seen); Mucous, Urine 0 SEEN /hpf (<or=2+); Red Blood Cells-Urine 0 SEEN /hpf (0-5)
[2023-07-09 16:10] LABS: Color, Urine Straw (Yellow); Glucose, Dipstick 1000 mg/dl (Normal); Ketone-Dipstick Negative (Negative); Leukocyte Esterase-Dipstick 100 /ul (Negative); Nitrite-Dipstick Negative (Negative); Occult Blood-Urine Negative /ul (Negative); Protein-Dipstick Negative (Negative); Urine Bilirubin Dipstick Negative (Negative); Urine Clarity Clear (Clear); Urine Urobilinogen Normal (Normal)
[2023-07-09 16:11] LABS: Absolute Lymphocyte Count 1.56 X10^3/uL (0.83-4.51); Basophil# 0.02 X10^3/uL; Basophil% 0.3 % (0-1); Eosinophil# 0.04 X10^3/uL; Eosinophils% 0.7 % (0-5); Hematocrit 42.5 % (37-47); Hemoglobin 14.5 g/dL (12.0-15.0); Lymphocyte # 1.56 X10^3/ul (0.83-4.51); Lymphocyte % 25.7 % (19-41); Mean Corp Hgb Conc 34.1 g/dL (32-36); Mean Corpuscular Hgb 29.6 pg (27.0-32.0); Mean Corpuscular Volume 86.7 fL (81-99); Monocyte# 0.42 X10^3/uL; Monocyte% 6.9 % (0-10); NRBC Flagged by Analyzer 0 % (0-5); Neutrophil # 4.02 X10^3/uL (2.7-7.7); Neutrophil % 66.2 % (47-70); Platelet Count 145 K/mm3 (150-450); RBC Distribution Width CV 11.9 % (11.6-14.6); RBC Distribution Width SD 38.3 fl (35.1-43.9); White Blood Count 6.1 K/mm3 (4.4-11.0)
[2023-07-09 16:15] LABS: Squamous Epithelial Cells - UA 0-5 SEEN /hpf (5-10); White Blood Cells 10-25 SEEN /hpf (0-5)
[2023-07-09 16:27] LABS: Anion Gap 6 (5-15); BUN 13 mg/dL (7-18); BUN/Creat Ratio 14.9 RATIO (10-20); Calcium,Total 9.6 mg/dL (8.5-10.1); Chloride 102 mmol/L (98-107); Creatinine, Serum 0.87 mg/dL (0.55-1.02); EST Glomerular Filtration Rate 72 mL/min (>60); Est Glom Filt Rate - Afr Amer 87 mL/min (>60); Estimated Creatinine Clearance 81.19 ml/min; Glucose 645 mg/dL (74-106); Potassium 4.1 mmol/L (3.5-5.1); Sodium Level 133 mmol/L (136-145)
[2023-07-09 16:41] VITALS: BP 159/89; PULSE 79; RESP 16; O2SAT 99
[2023-07-09 17:22] VITALS: BP 146/78; PULSE 66; RESP 16; TEMP 36.4; O2SAT 99
== END 2023-07-09 17:23 | disposition home or self-care (01) ==
PROVIDERS: Emergency Provider Emergency Medicine; PCP Family Medicine; Visit Provider Emergency Medicine
DX: N81.10 Cystocele, unspecified (principal); E11.65 Type 2 diabetes mellitus with hyperglycemia; E66.9 Obesity, unspecified; I10 Essential (primary) hypertension; Z79.82 Long term (current) use of aspirin; Z68.30 Body mass index [BMI] 30.0-30.9, adult
CPT/HCPCS: 76830; 80048; 81001; 85025; 99284; A4216

== ENCOUNTER 2025-01-07 19:33 | Emergency (ER) | payer OTHER, SELFPAY ==
[2025-01-07 19:34] VITALS: BP 169/102; PULSE 81; RESP 16; TEMP 36.4; O2SAT 100; BMI 28.7
--- NOTE | 2025-01-07 20:12 | EKG12_ITS ---
Test Reason : CHEST DISCOMFORT Blood Pressure : */* mmHG Vent. Rate : 75 BPM Atrial Rate : 75 BPM P-R Int : 142 ms QRS Dur : 84 ms QT Int : 388 ms P-R-T Axes : 33 42 62 degrees QTcB Int : 433 ms Normal sinus rhythm Normal ECG Confirmed by TEJA REAL, DALE ([id number]), manager editorial TERESA MCKEON ([id number]) on 01/10/2025 1:07:46 PM Referred By: HOLDEN Confirmed By: DALE LEZAMA MD
--- NOTE | 2025-01-07 20:18 | ED.VIS.CHEST ---
HPI History of Present Illness Chief Complaint: Chest Pain Narrative Narrative: Chief complaint and HPI: Chest pain. 54-year-old female with past medical history of DM2 who does not regularly take her metformin presents for evaluation of chest pain. Patient states she has been having midsternal chest/upper epigastrium discomfort long for the past week. States it comes and goes. States it is not true pain or any discomfort that makes her feel bloated and as if she needs to burp. She denies dyspnea or abdominal pain. She states for the past several days she has not generalized weakness and occasional shortness of breath. She is concerned maybe she has a UTI although denies dysuria or frequency. No history of HTN, CLD, CHKD. Non-smoker. Review of systems: See HPI Medications: As listed on the chart Allergies: As listed on the chart PFSH: Per chart Vital signs: As listed on the chart. Reviewed. Physical exam: Gen: A&O x3, NAD Head: Normocephalic, atraumatic Eyes: No sclera icterus, conjunctiva clear. ENT: Moist mucous membranes Neck: Trachea midline, No JVD CV: RRR, no murmurs, no peripheral edema Resp: Lungs CTA BL, no w/r/c GI: Abd soft, non-distended, non-tender, no r/r/g Musc: Full ROM, no deformity Skin: Warm, dry Neuro: Alert, oriented, grossly intact, sensation intact Psych: Cooperative, appropriate mood and affect [facility] Medical History Diabetes Hypertension Past heart attack Home Medications ?Medication ?Instructions ?Recorded ?Last Taken ?Type aspirin 81 mg chewable tablet 81 mg PO HS health maintenance 02/15/16 09/16/17 History metformin 1,000 mg tablet 1,000 mg PO BID 30 days #60 tabs 01/07/25 Unknown Rx metformin 500 mg tablet 1,000 mg PO BID 01/07/25 Unknown History Allergy/AdvReac Type Severity Reaction Status Date / Time Iodinated Contrast Media Allergy Hives Verified 01/07/25 19:37 Social History (Updated 07/09/23 @ 15:[address] Marcus Castañeda MD) household members: spouse Smoking Status: Never smoker EXAM Physical Exam Const Vital Signs: 01/07/25 19:34 01/07/25 19:34 01/07/25 20:34 Temperature 97.6 F L Temperature Source Temporal Pulse Rate 81 76 Respiratory Rate 16 18 Respiratory Effort Normal Non-Labored Blood Pressure 169/102 H 157/97 H Blood Pressure Mean 124 117 Pulse Ox 100 95 Oxygen Delivery Method Room Air Room Air 01/07/25 21:00 01/07/25 22:00 Temperature Temperature Source Pulse Rate 70 75 Respiratory Rate 18 15 Respiratory Effort Blood Pressure 142/90 H 154/95 H Blood Pressure Mean 107 114 Pulse Ox 98 97 Oxygen Delivery Method Room Air Room Air MDM MDM MDM Narrative Medical decision making narrative: 54-year-old female with medical history of DM2 who does not regularly take her metformin presents for evaluation of chest pain. Patient states she has been having midsternal chest/upper epigastrium discomfort long for the past week. States it comes and goes. States it is not true pain or any discomfort that makes her feel bloated and as if she needs to burp. Associated symptom is generalized weakness and occasional shortness of breath. Denies URI symptoms. Concern for UTI. On presentation, patient no acute distress. Vitals are stable other than hypertension. Patient states she has no history of hypertension. This may be a false error. Will repeat. Differential diagnosis includes but is not limited to GERD, ACS, biliary pathology, electrolyte abnormality, UTI, viral illness, untreated HTN. Aspirin and Pepcid ordered. Laboratory workup ordered including chest x-ray. EKG and chest x-ray reviewed see below. CBC without leukocytosis or anemia. D-dimer unremarkable. BMP relatively unremarkable except for hyperglycemia of 529. No LISBETH. Patient is a diabetic who does not take her metformin regularly. NS bolus and IV insulin ordered. No transaminitis. Lipase unremarkable. Troponin negative x 2. UA negative for UTI positive for glucose. Patient again is not diabetic. At this point in time, no clear etiology for her chest pain. Per the heart score she is low risk given a score of 2. On reevaluation, patient not having any chest pain. Her repeat glucose has improved to 366. Patient stable to discharge home. Patient was educated that she needs to take her metformin as prescribed. She states she recently lost her PCP and is almost out of her prescription. Will refill the prescription. She was told she needs to reestablish with her primary care physician. Return precautions explained. She confirmed understand the plan. Patient stable to discharge home. EKG: Interpreted by me/EM physician: EKG shows normal sinus rhythm without any acute ischemic changes. Heart rate 75 Diagnostic: Interpreted by me/EM physician: Chest x-ray doubt pneumonia, effusion, cardiomegaly, pneumothorax Impression: 1. Chest pain 2. Hyperglycemia with known diabetic, noncompliant with medication Lab Data Labs: Laboratory Results - last 24 hr 01/07/25 01/07/25 01/07/25 19:20 19:45 20:40 WBC 7.0 RBC 5.11 Hgb 15.2 H Hct 44.8 MCV 87.7 MCH 29.7 MCHC 33.9 RDW Std Deviation 39.7 RDW Coeff of Nohelia 12.4 Plt Count 209 MPV 12.6 H Immature Gran % (Auto) 0.300 Neut % (Auto) 59.1 Lymph % (Auto) 31.1 [place] % (Auto) 7.9 Eos % (Auto) 0.9 Baso % (Auto) 0.7 Absolute Neuts (auto) 4.1 Absolute Lymphs (auto) 2.17 Nucleated RBC % 0 D-Dimer Quant (PE/DVT) 0.27 Sodium 132 L Potassium 4.4 Chloride 95 L Carbon Dioxide 21.4 Anion Gap 15 BUN 12 Creatinine 0.74 Estim Creat Clear Calc 89.88 Est GFR (MDRD) Non-Af 96 BUN/Creatinine Ratio 16.4 Glucose 529 H* Calcium 9.6 Total Bilirubin 0.33 AST 20 ALT 16 Alkaline Phosphatase 108 H Troponin T High Sens < 6 Troponin T Hi Sens 2 Hr Total Protein 7.4 Albumin 4.3 Globulin 3.1 Albumin/Globulin Ratio 1.4 Lipase 34 Urine Color Yellow Urine Clarity Clear Urine pH 7.0 Ur Specific [place] 1.010 Urine Protein 15 H Urine Glucose (UA) 1000 H Urine Ketones 5 H Urine Occult Blood Negative Urine Nitrite Negative Urine Bilirubin Negative Urine Urobilinogen Normal Ur Leukocyte Esterase Negative Urine RBC 0-5 SEEN Urine WBC 0-5 SEEN Ur Squamous Epith Cells 0 SEEN Urine Bacteria 0 SEEN Urine Mucus 0 SEEN POC Glucose 01/07/25 01/07/25 21:23 21:46 WBC RBC Hgb Hct MCV MCH MCHC RDW Std Deviation RDW Coeff of Nohelia Plt Count MPV Immature Gran % (Auto) Neut % (Auto) Lymph % (Auto) [place] % (Auto) Eos % (Auto) Baso % (Auto) Absolute Neuts (auto) Absolute Lymphs (auto) Nucleated RBC % D-Dimer Quant (PE/DVT) Sodium Potassium Chloride Carbon Dioxide Anion Gap BUN Creatinine Estim Creat Clear Calc Est GFR (MDRD) Non-Af BUN/Creatinine Ratio Glucose Calcium Total Bilirubin AST ALT Alkaline Phosphatase Troponin T High Sens Troponin T Hi Sens 2 Hr < 6 Total Protein Albumin Globulin Albumin/Globulin Ratio Lipase Urine Color Urine Clarity Urine pH Ur Specific [place] Urine Protein Urine Glucose (UA) Urine Ketones Urine Occult Blood Urine Nitrite Urine Bilirubin Urine Urobilinogen Ur Leukocyte Esterase Urine RBC Urine WBC Ur Squamous Epith Cells Urine Bacteria Urine Mucus POC Glucose 366 H Radiography Diagnostic Testing: Clinical Impression(s) from Imaging Studies Chest X-Ray 01/07/25 20:20 IMPRESSION: No acute chest findings. Reading Location: [place] [id number] Discharge Plan Triage Chief Complaint: Chest Pain ED Provider: Orlando Kirkpatrick Dx/Rx/DC Orders Clinical Impression: Chest pain, Hyperglycemia due to diabetes mellitus Instructions: Diabetes Support, ED Chest Pain, Uncertain Cause, ED Diabetes- Overview Prescriptions: New metformin 1,000 mg tablet 1,000 mg PO BID 30 Days Qty: 60 0RF No Action aspirin 81 MG tablet,chewable 81 mg PO QHS metformin 500 mg tablet 1,000 mg PO BID Primary Care Provider: Care Physician,No Primary Referrals: Cresencio Silver MD [Med Staff - Active Staff] - 3-5 Days Activity Restrictions/Additional Instructions: Follow-up with the primary care physician listed above or another primary care physician. Sent a new prescription for your metformin. Return back to the ED if symptoms change or worsen. You need to take your metformin as prescribed. Print Language: Citizen Of [place] Disposition Disposition: Home, Self Care
[2025-01-07 20:20] LABS: Hematocrit 44.8 % (37-47); Hemoglobin 15.2 g/dL (12.0-15.0); Immature Granulocytes Count 0.020 X10^3/uL (0.0-0.0); Mean Corp Hgb Conc 33.9 g/dL (32-36); Mean Corpuscular Volume 87.7 fL (81-99); Mean Platelet Vol. 12.6 fl (6.2-12.0); NRBC Flagged by Analyzer 0 % (0-5); Platelet Count 209 K/mm3 (150-450); RBC Distribution Width CV 12.4 % (11.6-14.6); RBC Distribution Width SD 39.7 fl (35.1-43.9); Red Blood Count 5.11 M/mm3 (4.2-5.4); White Blood Count 7.0 K/mm3 (4.4-11.0)
--- NOTE | 2025-01-07 20:20 | RAD_ITS ---
PROCEDURE: CHEST PA AND LATERAL 01/07/2025 REASON FOR EXAM: CHEST PAIN TECHNIQUE: CHEST PA AND LATERAL COMPARISON: No FINDINGS: Mild scoliosis. Normal heart size. Well inflated lungs. No consolidation, effusion, or pneumothorax. RAD/Chest PA and Lateral IMPRESSION: No acute chest findings. Reading Location: [place] [id number]
[2025-01-07] MEDS: Famotidine 200 MG/20 ML MDV 20 MG in 0.9% Normal Saline (Pres. free 8 ML 300 MG IV (20:33)
[2025-01-07 20:34] VITALS: BP 157/97; PULSE 76; RESP 18; O2SAT 95
[2025-01-07 20:37] LABS: D-Dimer Quantitative (DVT/PE) 0.27 FEU/ug/m (0.27-0.49)
[2025-01-07 20:48] LABS: Mucous, Urine 0 SEEN /hpf (<or=2+); Squamous Epithelial Cells - UA 0 SEEN /hpf (5-10)
--- OUTSIDE RECORDS SUMMARY | 2025-01-07 20:49 | XMS RPT_ITS | CCD ---
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 screening mammogram is recommended. Janine lezama/noe:10/06/2023 16:12:00 Wine Blender(s): RT Maddie(R)(M), [facility] letter sent: Normal over 40 Mammogram BI-RADS: 1 Negative Multiple national specialty organizations have released breast cancer screening guidelines for women at average risk for developing breast cancer - guidelines that are based on both evidence and opinion, yet differ on when to start and how often to screen for breast cancer. With representation from Breast Imaging, Internal Medicine, Women's Health, Family Medicine, and Medical/Surgical Oncology, the [facility] has carefully reviewed the data and reached the following consensus: 1) All women should engage in shared decision-making with their providers to decide when to start and how often to screen; 2) All women should have the opportunity to start screening mammography at age 40; 3) For women ages 45-55, we recommend annual screening mammograms; 4) For women ages 55 and over, we support both the transition from an annual to a biennial interval if this aligns more with patient's values and preferences, or continuation with annual screening; 5) All women should discuss with their providers when to stop screening mammograms. Gutter Mouth Cutter: Noe Transcribe Date/Time: Oct 06 2023 8:07A Dictated by: JANINE ROMERO MD This examination was interpreted and the report reviewed and electronically signed by: JANINE ROMERO MD on Oct 06 2023 4:12PM EST [id number] Normal [facility] CNOVon 09-29-2023 CNOV Office Visit (OBGYWM ) ----- RADHA LUTHER ([id number]) 1970 F Date Time Provider Department 09/29/23 2:40 PM GLENDY DELEON OBGYWM During your visit today, we recorded the following information about you: Blood pressure Weight Last Period 144/82 81.6 kg 01/14/23 Glendy Deleon MD 09/29/2023 2:53 PM Signed Radha is a 52 year old who presents for an annual gynecologic exam without complaints. Some hot flashes Postmenopausal: perimenopausal no menses 8 months. WEre fairly regular before that HRT use: No. 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 Cystocele, unspecified Diabetes mellitus (HCC) type 1 HTN (hypertension) 11/22/2014 PAST SURGICAL HISTORY Procedure Laterality Date LIGATE FALLOPIAN TUBE 09/1993 FAMILY HISTORY Problem Relation Age of Onset Diabetes Father Brain Cancer Father 62 Diabetes Sister Osteoporosis Maternal Grandmother Heart Maternal Grandmother COPD Maternal Grandmother Coronary Artery Disease Maternal Grandfather 60's, Hypertension Maternal Aunt Hypertension Maternal Aunt Thyroid Maternal Aunt Thyroid Maternal Aunt SOCIAL HISTORY Social History Tobacco Use Smoking status: Some Days Types: Cigars Smokeless tobacco: Never Tobacco comments: Once a month Vaping Use Vaping Use: Never used Substance Use Topics Alcohol use: Yes Comment: seldom Drug use: Never REVIEW OF SYSTEMS Abdomen: No abdominal pain, nausea, vomiting, diarrhea, or constipation. No bloating, early satiety, indigestion, or increased flatulence. Bladder: No dysuria, gross hematuria, urinary frequency, urinary urgency, or incontinence Breast: No breast lumps, nipple d/c, overlying skin changes, redness or skin retraction Allergies and current medication updated:Yes EXAM: BP 144/82 Wt 180 lb (81.6kg) LMP 01/14/2023 GENERAL: pleasant, female in no apparent distress HEENT: Normocephalic, atraumatic, mucus membranes moist, and no lesions NECK: Supple, full range of motion, no adenopathy, and thyroid normal DERMATOLOGY: Normal, without lesions, non-icteric, and non-hirsute BREAST: soft, non-tender, symmetric, no dominant mass, normal nipple-areolar complex, no lymphadenopathy, and no nipple discharge CHEST: Normal inspiratory effort ABDOMEN: soft, non-tender, and no masses PELVIC: external genitalia normal, normal Bartholin's glands, urethra, [place]'s glands, no vulvar lesions, no cervical lesions, good vaginal support, physiologic discharge present, normal appearing perineal body and perianal region, cystocele 2nd degree, rectocele 1st degree, cervical prolapse 1st degree BIMANUAL: uterus normal size, shape and consistency, no adnexal masses, and non-tender RECTOVAGINAL: deferred. NEURO: alert and oriented x3,exam grossly non-focal EXTREMITIES: normal ASSESSMENT/PLAN: 1) Health maintenance: Pap done with HPV. Mammogram ordered Colon cancer screening: offered and will consider 2) Follow up one year or sooner as needed Glendy Deleon MD Referring Provider: SELF [200] Allergies As of Date: 09/29/2023 Noted Allergy Reaction DYE 01/26/2016 4 - Hives Comments: Allergic to dye (CT scan) IODINATED CONTRAST MEDIA 07/09/2023 4 - Hives Date Reviewed: 09/29/2023 Reviewed by: Glendy Deleon MD - Fully Assessed Reason for Visit: Establish Care [42] Primary Visit Diagnosis:Encounter for gynecological examination (general) (routine) without abnormal findings [Z01.419] Other Visit Diagnoses:Encounter for screening for human papillomavirus (HPV) [Z11.51] Pap smear for cervical cancer screening [Z12.4] Encounter for screening mammogram for breast cancer [Z12.31] Order(s):TIERRA SCREENING W SHAYY [[id number]] Order #: [id number] FUTURE PAP TEST [[id number]] Order #: [id number] Prescriptions as of 09/29/2023 - metformin HCl (METFORMIN ORAL) Take 1,000 mg by mouth two times a day. - cyanocobalamin, vitamin B-12, (VITAMIN B-12 ORAL) Take by mouth. - esomeprazole (NEXIUM) 40 mg capsule Take 40 mg by mouth daily at 6 am. - aspirin, enteric coated (ADULT LOW DOSE ASPIRIN) 81 mg EC tablet Take 1 tablet by mouth once daily. Problem List As Of Date 09/29/2023 Noted Resolved CAD (coronary artery disease) [I25.10] 11/22/2014 HTN (hypertension) [I10] 11/22/2014 TB lung, latent [Z22.7] 11/22/2014 Morbid obesity (HCC) [E66.01] (more content not included)... Normal [facility] HIGH RISK HUMAN PAPILLOMA [place] (HPV), PCR FOR DETECTION AND GENOTYPINGon 09-29-2023 HPV 16 Ag Ql (Unsp spec) Negative Normal Negative for HPV DNA high risk type 16 by PCR [facility] Comment on above: Order Comment: Speci men Type: FLUID SPECIMEN Ordering Facility: [facility] Address: [address] [place] [address] Performed By: #### L [id number], HPVHRT #### [facility] CLIA [id number] [address] [place] [address] [place] HPV 18 Ag Ql (Unsp spec) Negative Normal Negative for HPV DNA high risk type 18 by PCR [facility] Comment on above: Order Comment: Speci men Type: FLUID SPECIMEN Ordering Facility: [facility] Address: [address] [place] [address] Performed By: #### L [id number], HPVHRT #### [facility] CLIA [id number] [address] [place] [address] [place] HPV 31+33+35+39+45+51+52+5 6+58+59+66+68 DNA CONRADO+probe Ql (Cvx) Negative for HPV DNA high risk types: 31,33,35,39,45,51,52,56,5 8,59,66,68 by PCR. Normal Negative for HPV DNA high risk types: 31,33,35,39 ,45,51,52,5 6,58,59,66, 68 by PCR. [facility] Comment on above: Order Comment: Speci men Type: FLUID SPECIMEN Ordering Facility: [facility] Address: [address] [place] [address] Performed By: #### L [id number], HPVHRT #### [facility] CLIA [id number] [address] [place] [address] [place] PAP TESTon 09-29-2023 ADEQUACY Satisfactory for interpretation. Normal [facility] Comment on above: Order Comment: Speci men Type: FLUID SPECIMEN Ordering Facility: [facility] Address: [address] [place] [address] Performed By: #### L [id number], HPVHRT #### [facility] CLIA [id number] [address] [place] [address] [place] CASE REPORT Normal [facility] Comment on above: Order Comment: Speci men Type: FLUID SPECIMEN Ordering Facility: [facility] Address: [address] [place] [address] Result Comment: Gyne cologic Cytology Report Case: [id number] Authorizing Provider: Glendy Deleon MD Collected: 09/29/2023 03:02 PM Ordering Location: OB/Gynecology Received: 09/29/2023 05:02 PM First Screen: [place], [place], CT, ASCP Specimen: Pap Test, ThinPrep, Cervix Performed By: #### L [id number], HPVHRT #### [facility] CLIA [id number] [address] [place] [address] [place] CLINICAL HISTORY, CYTOLOGY, VICE PRESIDENT OF BRAND MANAGEMENT Routine Exam Normal [facility] Comment on above: Order Comment: Speci men Type: FLUID SPECIMEN Ordering Facility: [facility] Address: [address] [place], [place] [id number] Performed By: #### L [id number], HPVHRT #### [facility] CLIA [id number] [address] [place] [address] [place] FINAL PERFORMING LAB Normal [facility] Comment on above: Order Comment: Speci men Type: FLUID SPECIMEN Ordering Facility: [facility] Address: [address] [place] [address] Result Comment: Tech nical component, senior commercial loan officer screening performed at [facility], [address] [place], [place] [id number] CLIA# [id number] Diagnostic interpretation performed at [facility], [address] [place], [place] [id number] CLIA# [id number] Wellness Rn: Michael Espino M.D. Performed By: #### L [id number], HPVHRT #### [facility] CLIA [id number] [address] [place] [address] [place] HPV REFLEX Yes HPV Normal [facility] Comment on above: Order Comment: Speci men Type: FLUID SPECIMEN Ordering Facility: [facility] Address: [address] [place] [address] Performed By: #### L [id number], HPVHRT #### [facility] CLIA [id number] [address] [place] [address] [place] INTERPRETATION, CYTOLOGY, VICE PRESIDENT OF BRAND MANAGEMENT Normal [facility] Comment on above: Order Comment: Speci men Type: FLUID SPECIMEN Ordering Facility: [facility] Address: [address] [place] [address] Result Comment: Nega tive for intraepithelial lesion or malignancy. Performed By: #### L [id number], HPVHRT #### [facility] CLIA [id number] [address] [place] [address] [place] LMP 01/14/2023 Normal [facility] Comment on above: Order Comment: Speci men Type: FLUID SPECIMEN Ordering Facility: [facility] Address: [address] [place] [address] Performed By: #### L [id number], HPVHRT #### [facility] CLIA [id number] [address] [id number] [address] [place] PAP DISCLAIMER COMMENT The Pap Smear is a screening test for cervical cancer. False negative results occur with all screening tests, emphasizing the need for rescreening at recommended intervals, and clinical correlation. Normal [facility] Comment on above: Order Comment: Speci men Type: FLUID SPECIMEN Ordering Facility: [facility] Address: [address] [place] [address] Performed By: #### L [id number], HPVHRT #### [facility] CLIA [id number] [address] [place] [address] [place] PAP MANUAL TESTER COMMENT This specimen has be en analyzed by the ThinPrep Imaging System, an automated imaging and review system, which assists the laboratory in evaluating cells on ThinPrep Pap tests. Following automated imaging, selected hassan from every slide are reviewed by a senior commercial loan officer. Normal [facility] Comment on above: Order Comment: Speci men Type: FLUID SPECIMEN Ordering Facility: [facility] Address: [address] [place] [address] Performed By: #### L [id number], HPVHRT #### [facility] CLIA [id number] [address] [place] [address] [place] Absolute lymphocyte countOrd ered By: Marcus Castañeda on 07-09-2023 Lymphocytes Auto (Unsp spec) [#/Vol] 1.56 10*3/uL 0.83-4.51 [facility] Automated lymphocyte count a s percentage of total leukocytesOrdered By: Marcus Castañeda on 07-09-2023 Lymphocytes/100 WBC Auto (Unsp spec) 25.7 % 19-41 [facility] Basic Metabolic Profile (BMP )on 07-09-2023 BUN/CRE 14.9 RATIO Normal 10-20 [facility] Comment on above: Performed By: #### L 500.2500, L100.0100 #### [facility] [address] [place], [address] CA,Total 9.6 mg/dL Normal 8.5-10.1 [facility] Comment on above: Performed By: #### L 500.2500, L100.0100 #### [facility] [address] [place], [address] Chloride [Moles/Vol] 102 mmol/L Normal 98-107 [facility] Comment on above: Performed By: #### L 500.2500, L100.0100 #### [facility] [address] [place], [address] CO2 [Moles/Vol] 25.0 mmol/L Normal 21.0-32.0 [facility] Comment on above: Performed By: #### L 500.2500, L100.0100 #### [facility] [address] [place], [address] Creatinine [Mass/Vol] 0.87 mg/dL Normal 0.55-1.02 [facility] Comment on above: Result Comment: The validity of the calculated GFR GFRAA in patients over 70 years has not been determined. Clinical correlation is essential. Performed By: #### L 500.2500, L100.0100 #### [facility] [address] [place], [address] ECRCL 81.19 ml/min Normal [facility] Comment on above: Performed By: #### L 500.2500, L100.0100 #### [facility] [address] [place], [address] EST GFR - AA 87 mL/min Normal >60 [facility] Comment on above: Result Comment: Afri can Gabonese GFR Calc Performed By: #### L 500.2500, L100.0100 #### [facility] [address] [place], [address] GAP 6 Normal 5-15 [facility] Comment on above: Performed By: #### L 500.2500, L100.0100 #### [facility] [address] [place], [address] GFR/1.73 sq M.predicted among non-blacks MDRD (S/P/Bld) [Vol rate/Area] 72 mL/min/{1.73_m2} Normal >60 [facility] Comment on above: Result Comment: Non- GFR Calc Performed By: #### L 500.2500, L100.0100 #### [facility] [address] [place], [address] Glucose [Mass/Vol] 645 mg/dL Invalid Interpretation Code 74-106 [facility] Comment on above: Result Comment: Crit ical Result(s) Called at: 16:25:56 07/09/2023 by: Ruchi michelle bhavesh. Results read back by same. Glucose result greater than or equal to 200 mg/dL suggests DIABETES MELLITUS per A.D.A. criteria. Performed By: #### L 500.2500, L100.0100 #### [facility] [address] [place], [address] Potassium [Moles/Vol] 4.1 mmol/L Normal 3.5-5.1 [facility] Comment on above: Result Comment: Slig ht Hemolysis, Result may be falsely increased. Performed By: #### L 500.2500, L100.0100 #### [facility] [address] [place], [address] Sodium [Moles/Vol] 133 mmol/L Low 136-[address] [facility] Comment on above: Performed By: #### L 500.2500, L100.0100 #### [facility] [address] [place], [address] Urea nitrogen [Mass/Vol] 13 mg/dL Normal 7-18 [facility] Comment on above: Performed By: #### L 500.2500, L100.0100 #### [facility] [address] [place], [address] Basophil percentageOrdered B y: Marcus Castañeda on 07-09-2023 Basophil percentage 10-25 SEEN /hpf 0-5 [facility] Basophils/100 WBC (Bld) 0.3 % 0-1 [facility] Chloride [Moles/Vol] 102 mmol/L 98-107 [facility] Eosinophils/100 WBC (Bld) 0.7 % 0-5 [facility] Glucose [Mass/Vol] 645 mg/dL 74-[address] [facility] Comment on above: Critical Result(s) C alled at: 16:25:56 07/09/2023 by: Ruchi Pizano to Artemio. Results read back by same.Glucose result greater than or equal to 200 mg/dLsuggests DIABETES MELLITUS per A.D.A. criteria. Hemoglobin (Bld) [Mass/Vol] 14.5 g/dL 12.0-15.0 [facility] Monocytes/100 WBC (Bld) 6.9 % 0-10 [facility] Neutrophils (Bld) [#/Vol] 4.0 10*3/uL 2.0-7.7 [facility] Neutrophils/100 WBC (Bld) 66.2 % 47-70 [facility] Potassium [Moles/Vol] 4.1 mmol/L 3.5-5.1 [facility] Comment on above: Slight Hemolysis, Re sult may be falsely increased. Sodium [Moles/Vol] 133 mmol/L 136-[address] [facility] WBC (Bld) [#/Vol] 6.1 10*3/uL 4.4-11.[address] [facility] Bilirubin Test strip Ql (U)O rdered By: Marcus Castañeda on 07-09-2023 Bilirubin Ql (U) Negative Negative [facility] CBC W/Diff, Automatedon Absolute Lymph 1.56 X10 3/uL Normal 0.83-4.51 [facility] Comment on above: Performed By: #### L 500.2500, L100.0100 #### [facility] [address] [place], [place], [address] Absolute Neut 4.0 X10 3/uL Normal 2.0-7.7 [facility] Comment on above: Performed By: #### L 500.2500, L100.0100 #### [facility] [address] [place], [address] Basophils/100 WBC (Bld) 0.3 % Normal 0-1 [facility] Comment on above: Performed By: #### L 500.2500, L100.0100 #### [facility] [address] [place], [address] Eosinophils/100 WBC (Bld) 0.7 % Normal 0-5 [facility] Comment on above: Performed By: #### L 500.2500, L100.0100 #### [facility] [address] [place], [address] Erythrocyte distribution width (RBC) [Ratio] 11.9 % Normal 11.6-14.6 [facility] Comment on above: Performed By: #### L 500.2500, L100.0100 #### [facility] [address] [place], [address] Hematocrit (Bld) [Volume fraction] 42.5 % Normal 37-47 [facility] Comment on above: Performed By: #### L 500.2500, L100.0100 #### [facility] [address] [place], [address] Hemoglobin (Bld) [Mass/Vol] 14.5 g/dL Normal 12.0-15.0 [facility] Comment on above: Performed By: #### L 500.2500, L100.0100 #### [facility] [address] [place], [address] IG% 0.200 Normal 0.0-0.9 [facility] Comment on above: Result Comment: IG% - Immature Granulocytes (promyelocytes, myelocytes and metamyelocytes) > 1% indicates that a LEFT SHIFT is Present. Performed By: #### L 500.2500, L100.0100 #### [facility] [address] [place], [address] Lymphocytes/100 WBC (Bld) 25.7 % Normal 19-41 [facility] Comment on above: Performed By: #### L 500.2500, L100.0100 #### [facility] [address] [place], [address] MCH (RBC) [Entitic mass] 29.6 pg Normal 27.0-32.0 [facility] Comment on above: Performed By: #### L 500.2500, L100.0100 #### [facility] [address] [place], [address] MCHC (RBC) [Mass/Vol] 34.1 g/dL Normal 32-36 [facility] Comment on above: Performed By: #### L 500.2500, L100.0100 #### [facility] [address] [place], [address] MCV (RBC) [Entitic vol] 86.7 fL Normal 81-99 [facility] Comment on above: Performed By: #### L 500.2500, L100.0100 #### [facility] [address] [place], [address] Monocytes/100 WBC (Bld) 6.9 % Normal 0-10 [facility] Comment on above: Performed By: #### L 500.2500, L100.0100 #### [facility] [address] [place], [address] Neutrophils/100 WBC (Bld) 66.2 % Normal 47-70 [facility] Comment on above: Performed By: #### L 500.2500, L100.0100 #### [facility] [address] [place], [address] Nucleated RBC (Bld) [#/Vol] 0 10*3/uL Normal 0-5 [facility] Comment on above: Performed By: #### L 500.2500, L100.0100 #### [facility] [address] [place], [address] Platelet mean volume (Bld) [Entitic vol] 13.0 fL High 6.2-12.0 [facility] Comment on above: Performed By: #### L 500.2500, L100.0100 #### [facility] [address] [place], [address] Platelets (Bld) [#/Vol] 145 10*3/uL Low 150-450 [facility] Comment on above: Performed By: #### L 500.2500, L100.0100 #### [facility] [address] [place], [address] RBC (Bld) [#/Vol] 4.90 10*6/uL Normal 4.2-5.4 [facility] Comment on above: Performed By: #### L 500.2500, L100.0100 #### [facility] [address] [place], [address] RDW SD 38.3 fl Normal 35.1-43.9 [facility] Comment on above: Performed By: #### L 500.2500, L100.0100 #### [facility] [address] [place], [address] WBC (Bld) [#/Vol] 6.1 10*3/uL Normal 4.4-11.[address] [facility] Comment on above: Performed By: #### L 500.2500, L100.0100 #### [facility] [address] [place], [address] Determination of erythrocyte mean corpuscular volume (MCV)Ordered By: Marcus Castañeda on 07-09-2023 MCV (RBC) [Entitic vol] 86.7 fL 81-99 [facility] Emergency Department Summary on 07-09-2023 Emergency Department Summary [facility] Medical Records Department [address] [place] [address] Emergency Department Summary 07/09/23 MR#: [id number] Acct: [id number] Name: RADHA LUTHER Rep #: [id number] : 1970 52 From: Marcus Castañeda MD PCP: Dr. Tish Vaughn MD Status:REG ER Location: ED HPI HPI - Female History of Present Illness Chief Complaint: Female C/O Detail of Chief Complaint: Concern for prolapsed uterus Informant: patient Pain Pain: Positive for Pelvic Pain Onset: Yesterday Timing: Continuous and Waxes and wanes Quality: Positive for Aching Current Severity: Mild Maximum Severity: Moderate Bleeding Issue: Negative for Vaginal bleeding Associated Symptoms Associated Symptoms: Positive for Frequency and Urgency; Negative for Dysuria or Hematuria Sexually: Positive for Active P: 3 Narrative Narrative: Patient is a 52-year-old woman who presents because of concern for prolapsed uterus. She had some discomfort yesterday. This morning she noted a bulge when she stood. She has discomfort in the pelvic area. She does have urgency and frequency. She feels that she does not completely void. She has not seen a cardiovascular technician in some time. She is diabetic and does not check her blood sugar regularly. She does endorse polyuria, polydipsia and nocturia as well as frequency. She denies fever, chills night sweats. She denies nausea, vomiting or diarrhea. She denies constipation. She has no history of abdominal surgery. She denies back or flank pain. Prior similar symptoms: No Recent Illness/Hospitalization: No PFSH PFSH Medical History Diabetes Hypertension Past heart attack Home Medications aspirin 81 mg chewable tablet 81 mg PO QHS health maintenance 02/15/16 [History Last Taken 09/16/17] cimetidine 200 mg tablet 200 mg PO QHS stomach acid 09/17/17 [History Last Taken 09/16/17] Allergy/AdvReac Type Severity Reaction Status Date / Time Iodinated Contrast Media Allergy Hives Verified 07/09/23 14:43 Social History (Updated 07/09/23 @ 15:[address] Marcus Castañeda MD) household members: spouse Smoking Status: Never smoker ROS ROS ED Constitutional Constitutional ED: Denies chills, fever(s), subjective or sweats Cardiovascular Cardiovascular: Denies chest pain or palpitations Respiratory/Chest Respiratory/Chest: Denies cough, dyspnea or dyspnea on exertion Gastrointestinal Gastrointestinal: Reports abdominal pain; Denies diarrhea, melena, nausea or vomiting Genitourinary Genitourinary ED: Reports urinary frequency; Denies dysuria or hematuria Musculoskeletal Musculoskeletal: Denies arthralgias, myalgias or neck pain Integumentary Denies rash Neurologic Neurologic: Denies headache(s), paresthesias or weakness Endocrine Endocrinology: Reports polydipsia and polyuria Hematologic/Lymphatic Hematologic/Lymphatic: Denies easy bleeding or easy bruising EXAM Physical Exam Const Vital Signs: 07/09/23 14:41 07/09/23 16:41 Temperature 97.8 F Temperature Source Temporal Pulse Rate 78 79 Respiratory Rate 16 16 Blood Pressure 164/83 H 159/89 H Blood Pressure Mean 110 112 Pulse Ox 99 99 Oxygen Delivery Method Room Air Room Air Positive well nourished and well developed General Appearance ED: well developed and NAD; Negative for pallor HEENT Reports moist mucous membranes HEENT Narrative: Head is atraumatic and normocephalic. Eyes PERRL and EOMs intact bilaterally General Eye ED: Negative for pale conjunctiva or scleral icterus Neck supple and no JVD Resp normal respiratory effort and clear to auscultation bilaterally Cardio regular rate, regular rhythm, S1 normal heart sound, no murmurs and no JVD GI normal to inspection, nondistended, normoactive bowel sounds, soft to palpation, non-distended and no masses; Negative for non-tender Palpation: tender suprapubic Narrative: Urethra appears normal. There appears to be a cystocele. Vaginal mucosa and cervical mucosa are atrophied. Bimanual exam elicited tenderness with pressure against the cervix. The uterus is large. Since patient is complaining of pain and has an enlarged uterus has not seen a cardiovascular technician in years we will obtain a pelvic ultrasound. Since she has symptoms of hyperglycemia we will obtain a BGT. Back/Spine no CVA tenderness Thoracic Spine / Upper Back: Negative for thoracic spinal tenderness Lumbar Spine / Lower Back: Negative for lumbar spinal tenderness Extremity normal to inspection and full ROM Neuro oriented x3, CN's II-XII intact bilaterally and no sensory deficits noted Sensorium / Orientation: alert Skin no rashes or lesions noted and no wounds General Skin Exam: Negative for jaundice or pallor MDM MDM MDM Narrative Medical decision making n (more content not included)... Normal [facility] Erythrocyte distribution wid th ratioOrdered By: Marcus Castañeda on 07-09-2023 Erythrocyte distribution width (RBC) [Ratio] 11.9 % 11.6-14.6 [facility] Erythrocyte distribution wid th standard deviationOrdered By: Marcusadri Castañeda on 07-09-2023 Erythrocyte distribution width (RBC) [Entitic vol] 38.3 fL 35.1-43.9 [facility] Hematocrit Auto (Bld) [Volum e fraction]Ordered By: Marcusadri Castañeda on 07-09-2023 Hematocrit (Bld) [Volume fraction] 42.5 % 37-47 [facility] Immature granulocytes/100 WB C Auto (Bld)Ordered By: Marcusadri Castañeda on 07-09-2023 Immature granulocytes/100 WBC (Bld) 0.200 % 0.0-0.9 [facility] Comment on above: IG% - Immature Granu locytes (promyelocytes, myelocytes and metamyelocytes) > 1% indicates that a LEFT SHIFT is Present. Ketones Test strip Ql (U)Ord ered By: Marcusadri Castañeda on 07-09-2023 Ketones Ql (U) Negative Negative [facility] Laboratory - Chemistry and C hemistry - challengeOrdered By: Marcusadri Castañeda on 07-09-2023 CO2 [Moles/Vol] 25.0 mmol/L 21.0-32.0 [facility] Urea nitrogen/Creatinine [Mass ratio] 14.9 mg/mg 10-20 [facility] Laboratory - Hematology and Cell countsOrdered By: Marcusadri Castañeda on 07-09-2023 MCH (RBC) [Entitic mass] 29.6 pg 27.0-32.0 [facility] MCHC (RBC) [Mass/Vol] 34.1 g/dL 32-36 [facility] Nucleated RBC/100 WBC (Bld) [Ratio] 0 % 0-5 [facility] Platelet mean volume (Bld) [Entitic vol] 13.0 fL 6.2-12.0 [facility] Platelets (Bld) [#/Vol] 145 10*3/uL 150-450 [facility] Mucus LM Ql (Urine sed)Order ed By: Marcus Castañeda on 07-09-2023 Mucus Ql (Urine sed) 0 SEEN /hpf [facility] Nitrite Test strip Ql (U)Ord ered By: Marcus Castañeda on 07-09-2023 Nitrite Ql (U) Negative Negative [facility] No Panel InformationOrdered By: Marcus Castañeda on 07-09-2023 Urine RBC 0 SEEN /hpf 0-5 [facility] Estimated Creatinine Clearance Calc 81.19 ml/min [facility] Estimated GFR (MDRD) Amer 87 mL/min >60 [facility] Comment on above: GFR Calc Estimated GFR (MDRD) Non-Af Amer 72 mL/min >60 [facility] Comment on above: Non- GFR Calc Protein Test strip Ql (U)Ord ered By: Marcus Castañeda on 07-09-2023 Protein Ql (U) Negative Negative [facility] RBC Auto (Bld) [#/Vol]Ordere d By: Marcus Castañeda on 07-09-2023 RBC (Bld) [#/Vol] 4.90 10*6/uL 4.2-5.4 [facility] Serum or plasma calcium luly urement (mass/volume)Ordered By: Marcus Castañeda on 07-09-2023 Calcium [Mass/Vol] 9.6 mg/dL 8.5-10.[address] [facility] Serum or plasma creatinine m easurement (mass/volume)Ordered By: Marcus Castañeda on 07-09-2023 Creatinine [Mass/Vol] 0.87 mg/dL 0.55-1.02 [facility] Comment on above: The validity of the calculated GFR & GFRAA in patients over 70 years has not been determined. Clinical correlation is essential. Serum or plasma urea nitroge n measurement (mass/volume)Ordered By: Marcus Castañeda on 07-09-2023 Urea nitrogen [Mass/Vol] 13 mg/dL 7-18 [facility] Squamous epithelial cells de tection in urine sediment by light microscopyOrdered By: Marcus Castañeda on 07-09-2023 Epithelial cells.squamous LM Ql (Urine sed) 0-5 SEEN /hpf 5-10 [facility] Thin prep Papanicolaou smear with manual screeningOrdered By: Marcus Castañeda on 07-09-2023 Thin prep Papanicolaou smear with manual screening 6 5-15 [facility] Transvaginal Non-on 07-09-2023 Transvaginal Non- [facility] Imaging Services [address] [place] [address] Transvaginal Non- MR#: [id number] Acct: [id number] Name: RADHA LUTHER Rep #: [id number] : 1970 F 52 From: Ranjeet rush MD PCP: Dr. Tish Vaughn MD Status: REG ER Study: Transvaginal Non- Date of Exam: Exam# [id number] Ordering Dr: Marcus Castañeda MD [id number] STUDY: ULTRASOUND TRANSVAGINAL CLINICAL: Female, 52 years old. Pelvic pain, enlarged uterus on bimanual TECHNIQUE: Transvaginal COMPARISON: None. FINDINGS: Normal uterine size measuring 7.7 x 5.6 x 4.1 cm in maximal craniocaudal dimension. There are no myometrial masses. Normal endometrial thickness measuring 7 mm. There are no endometrial masses, and there is no fluid in the endometrial cavity. Nabothian cyst of the uterine cervix. Normal right ovary, measuring 2.9 x 2.2 x 1.1 cm. There is 0.8 cm cyst. There is normal blood flow. Normal left ovary, measuring 2.2 x 1.1 x 1.1 cm. There are multiple follicles without a dominant cyst. There is normal blood flow. There is no free fluid in the pelvis. Polycystic ovary disease: No. US/Transvaginal Non- IMPRESSION: No definite acute or significant abnormality seen. Electronically Signed: Ranjeet Ferrera MD at 16:45 EST , CC: Dr. Tish Vaughn MD; Dr. Marcus Castañeda MD Gutter Mouth Cutter: Signed Normal [facility] Urinalysis, Completeon 07-09 EPI,SQUAMOUS 0-5 SEEN Normal 5-10 [facility] Comment on above: Order Comment: CLEAN CATCH Performed By: #### L [id number] #### [facility] Laboratory [address] [place], [address] WBC 10-25 SEEN Normal 0-5 [facility] Comment on above: Order Comment: CLEAN CATCH Performed By: #### L [id number] #### [facility] Laboratory [address] [place], [address] BACTERIA 0 SEEN Normal None Seen [facility] Comment on above: Order Comment: CLEAN CATCH Performed By: #### L [id number] #### [facility] [address] [place], [address] Mucus Ql (Urine sed) 0 SEEN Normal [facility] Comment on above: Order Comment: CLEAN CATCH Performed By: #### L [id number] #### [facility] [address] [place], [address] RBC 0 SEEN Normal 0-5 [facility] Comment on above: Order Comment: CLEAN CATCH Performed By: #### L [id number] #### [facility] [address] [place], [address] Urine blood detectionOrdered By: Marcus Castañeda on 07-09-2023 RBC Ql (U) Negative Negative [facility] Urine clarityOrdered By: Marcus Castañeda on 07-09-2023 Clarity (U) Clear Clear [facility] Urine color determinationOrd ered By: Marcus Castañeda on 07-09-2023 Color (U) Straw Yellow [facility] Urine glucose detectionOrder ed By: Marcus Castañeda on 07-09-2023 Glucose Ql (U) 1000 mg/dl Normal [facility] Urine leukocyte esterase det ection by dipstickOrdered By: Marcus Castañeda on 07-09-2023 Leukocyte esterase Test strip Ql (U) 100 /ul Negative [facility] Urine pHOrdered By: Marcus rush on 07-09-2023 pH (U) 6.0 [pH] 5.0 - 8.0 [facility] Urine sediment bacteria coun t by microscopy (number/high power field)Ordered By: Marcus Castañeda on 07-09-2023 Bacteria LM.HPF (Urine sed) [#/Area] 0 /[HPF] None Seen [facility] Urine specific gravity measu rementOrdered By: Marcus Castañeda on 07-09-2023 Specific gravity (U) [Rel density] 1.010 1.002-1.030 [facility] Urine urobilinogen measureme ntOrdered By: Marcusadri Castañeda on 07-09-2023 Urobilinogen Ql (U) Normal mg/dl Normal [facility] PT Progress Noteon 2 PT Progress Note Therapy Diagnosis Assessed Neck pain (723.1) (M54.2) Plan Goals: Goals set and discussed today. 1. Independent HEP to allow for 50% reduction in max ADL C/C sx ( 10/09) 2-3wks 2/10 max sx within the last 5 days; 05/29/22; MET 2. 0/10 night time sx to allow for uninterrupted sleep x1wk ( 09/06) 2-3wks 1/7 nights wakes now; 05/29/22; PARTIALLY MET 3. Survey score improvement from 24% to 15% (NDI) 3-4wks 10% as of 05/29/22; MET 4. ROM increase to allow for improved ADL driving (from 03/26 to 35 R/LSB cerv) 3-4wks 35 deg B cerv SBs today; the patient notes ADL motion improvements; 05/29/22; MET Planned interventions include: cryotherapy, dry needling, education/instruction, electrical stimulation, home program, hot pack, kinesiotaping, manual therapy, self care/home management, therapeutic exercises and IASTM/cupping. Frequency and duration: 2 time(s) a week, for 4 weeks, for 8 visits. Potential to achieve rehab goals is excellent Discharge patient: Achieved all and/or the most significant goal(s). the patient agrees to D/C to ongoing HEP with progress achieved. Assessment Patient identity confirmed today with name/. see goals; excellent pain reduction, ADL tolerance improvements, and ROM improvements; final HEP reviewed and added to. Adult Risk Screening There are no spiritual/cultural practices/values/needs that are important to know Initial Fall Risk Screening: RADHA has not fallen in the last 6 months. RADHA does not have a fear of falling. She does not need assistance with sitting, standing or walking. Does not need assistance walking in her home. She does not need assistance in an unfamiliar setting. The patient is not using an assistive device. Please identify location of pain: R mid neck pain. Pain Quality: Tenderness. Living Will. Living Will: No living will on file. Patient Declined. Healthcare POA: No healthcare proxy on file. Patient Declined. Declaration of Mental Health Treatment: No mental health treatment on file. Patient Declined. Insurance Insurance reviewed Visit number: 6 Self Pay Evaluating therapist Deni Garcia PT. M54.2 Subjective Patient reports:. No pain right now-the exercises and the sauna helps also. Precautions: Fall Risk: none Pertinent medical HX includes: R ankle/LB/RLE/chest pain; CAD; DM; RA. Treatment Time in clinic started at 8:34 am Time in clinic ended at 8:56 am Total time in clinic is 22 minutes. Total timed code time is 10 minutes. Therapeutic exercise (54766): timed minutes 10, units 1 . review ongoing HEP recommendations supine C1 wiggle 5x2 count ea NOT TODAY UBE x3' Fwd/ x3' Bkwd (N) Pulleys with cervical rotation x3' 5 hold (N) Bwd shoulder rolls x15 Scap retraction x15 5? hold UT stretch 3 x 30? B (P, time) LS stretch 3 x 30? B (P, time) SCM stretch 3 x 30? B (P, time) Supine cervical rotation 10 x 10? hold Standing cervical isometric x10 with ball 1# weight Ext, Lateral (N) Standing rows Purple Tube x10 (N) Standing shoulder extension Purple Tube x10 (N) . Manual Therapy (47198):. NOT TODAY STW to SCM, UT, suboccipitals, paraspinals and LS with mild traction. Provided today: education . 05/02/22 [id number] Provided and reviewed for HEP patient demonstrated good understanding. 'Scores and Scales' Signatures Electronically signed by : Toan Garcia PT; May 29 2022 9:00AM EST (Author) Normal [facility] Therapy Re-eval Noteon 05-29 Therapy Re-eval Note Therapy Diagnosis Assessed 1. Neck pain (723.1) (M54.2) Plan Goals: Goals set and discussed today. 1. Independent HEP to allow for 50% reduction in max ADL C/C sx ( 10/09) 2-3wks 2/10 max sx within the last 5 days; 05/29/22; MET 2. 0/10 night time sx to allow for uninterrupted sleep x1wk ( 09/06) 2-3wks 1 nights wakes now; 05/29/22; PARTIALLY MET 3. Survey score improvement from 24% to 15% (NDI) 3-4wks 10% as of 05/29/22; MET 4. ROM increase to allow for improved ADL driving (from 03/26 to 35 R/LSB cerv) 3-4wks 35 deg B cerv SBs today; the patient notes ADL motion improvements; 05/29/22; MET Planned interventions include: cryotherapy, dry needling, education/instruction, electrical stimulation, home program, hot pack, kinesiotaping, manual therapy, self care/home management, therapeutic exercises and IASTM/cupping. Frequency and duration: 2 time(s) a week, for 4 weeks, for 8 visits. Potential to achieve rehab goals is excellent Discharge patient: Achieved all and/or the most significant goal(s). the patient agrees to D/C to ongoing HEP with progress achieved. Assessment Patient identity confirmed today with name/. see goals; excellent pain reduction, ADL tolerance improvements, and ROM improvements; final HEP reviewed and added to. Adult Risk Screening There are no spiritual/cultural practices/values/needs that are important to know Initial Fall Risk Screening: RADHA has not fallen in the last 6 months. RADHA does not have a fear of falling. She does not need assistance with sitting, standing or walking. Does not need assistance walking in her home. She does not need assistance in an unfamiliar setting. The patient is not using an assistive device. Please identify location of pain: R mid neck pain. Pain Quality: Tenderness. Living Will. Living Will: No living will on file. Patient Declined. Healthcare POA: No healthcare proxy on file. Patient Declined. Declaration of Mental Health Treatment: No mental health treatment on file. Patient Declined. Insurance Insurance reviewed Visit number: 6 Self Pay Evaluating therapist Deni Garcia PT. M54.2 Subjective Patient reports:. No pain right now-the exercises and the sauna helps also. Precautions: Fall Risk: none Pertinent medical HX includes: R ankle/LB/RLE/chest pain; CAD; DM; RA. Treatment Time in clinic started at 8:34 am Time in clinic ended at 8:56 am Total time in clinic is 22 minutes. Total timed code time is 10 minutes. Therapeutic exercise (75608): timed minutes 10, units 1 . review ongoing HEP recommendations supine C1 wiggle 5x2 count ea NOT TODAY UBE x3' Fwd/ x3' Bkwd (N) Pulleys with cervical rotation x3' 5 hold (N) Bwd shoulder rolls x15 Scap retraction x15 5? hold UT stretch 3 x 30? B (P, time) LS stretch 3 x 30? B (P, time) SCM stretch 3 x 30? B (P, time) Supine cervical rotation 10 x 10? hold Standing cervical isometric x10 with ball 1# weight Ext, Lateral (N) Standing rows Purple Tube x10 (N) Standing shoulder extension Purple Tube x10 (N) . Manual Therapy (23210):. NOT TODAY STW to SCM, UT, suboccipitals, paraspinals and LS with mild traction. Provided today: education . 05/02/22 [id number] Provided and reviewed for HEP patient demonstrated good understanding. 'Scores and Scales' Signatures Electronically signed by : Toan Garcia PT; May 29 2022 9:00AM EST (Author) Reviewed by : Lobo Hernandez MD; May 29 2022 9:36AM EST Normal [facility] Therapy Communicationon 05-02 Therapy Communication Message RADHA LUTHER canceled today . Patient canceled today d/t family emergency. Signatures Electronically signed by : Sharri Car PTA; May 20 2022 8:42AM EST (Author) Normal [facility] PT Progress Noteon 2 PT Progress Note Therapy Diagnosis Assessed Neck pain (723.1) (M54.2) Plan Goals: Goals set and discussed today. 1. Independent HEP to allow for 50% reduction in max ADL C/C sx ( 5/10) 2-3wks 2. 0/10 night time sx to allow for uninterrupted sleep x1wk ( 09/06) 2-3wks 3. Survey score improvement from 24% to 15% (NDI) 3-4wks 4. ROM increase to allow for improved ADL (from 03/26 to 35 R/LSB cerv) 3-4wks Planned interventions include: cryotherapy, dry needling, education/instruction, electrical stimulation, home program, hot pack, kinesiotaping, manual therapy, self care/home management, therapeutic exercises and IASTM/cupping. Frequency and duration: 2 time(s) a week, for 4 weeks, for 8 visits. Potential to achieve rehab goals is excellent will continue to work on progressing toward plan of care as tolerated to be able to get a full nights sleep uninterrupted. Assessment Patient identified by name and Patient demo's fatigue at end of session with new exercises and progressions. PRE's performed to help improve strength in cervical paraspinals with good tolerance. Adult Risk Screening There are no spiritual/cultural practices/values/needs that are important to know Initial Fall Risk Screening: RADHA has not fallen in the last 6 months. RADHA does not have a fear of falling. She does not need assistance with sitting, standing or walking. Does not need assistance walking in her home. She does not need assistance in an unfamiliar setting. The patient is not using an assistive device. Please identify location of pain: R mid neck pain. Pain Quality: Tenderness. Living Will. Living Will: No living will on file. Patient Declined. Healthcare POA: No healthcare proxy on file. Patient Declined. Declaration of Mental Health Treatment: No mental health treatment on file. Patient Declined. Insurance Insurance reviewed Visit number: 5 Self Pay Evaluating therapist Deni Garcia PT. M54.2 Subjective Patient reports:. Patient states that she doesn't really exhibit pain anymore. Precautions: Fall Risk: none Pertinent medical HX includes: R ankle/LB/RLE/chest pain; CAD; DM; RA. Treatment Time in clinic started at 1001 am Time in clinic ended at 1042 am Total time in clinic is 41 minutes. Total timed code time is 39 minutes. Therapeutic exercise (43495): timed minutes 39, units 3 . UBE x3' Fwd/ x3' Bkwd (N) Pulleys with cervical rotation x3' 5 hold (N) Bwd shoulder rolls x15 Scap retraction x15 5? hold UT stretch 3 x 30? B (P, time) LS stretch 3 x 30? B (P, time) SCM stretch 3 x 30? B (P, time) Supine cervical rotation 10 x 10? hold Standing cervical isometric x10 with ball 1# weight Ext, Lateral (N) Standing rows Purple Tube x10 (N) Standing shoulder extension Purple Tube x10 (N) . Manual Therapy (20447): timed minutes , units . STW to SCM, UT, suboccipitals, paraspinals and LS with mild traction. Provided today: education . 05/02/22 [id number] Provided and reviewed for HEP patient demonstrated good understanding. 'Scores and Scales' Signatures Electronically signed by : Sharri Car PTA; May 17 2022 11:21AM EST (Author) Electronically signed by : Toan Garcia, PT; May 17 2022 1:14PM EST Normal [facility] Therapy Communicationon 05-02 Therapy Communication Message RADHA LUTHER canceled today . Patient canceled today d/t illness. Signatures Electronically signed by : Sharri Car PTA; May 13 2022 8:58AM EST (Author) Normal [facility] PT Progress Noteon 2 PT Progress Note Therapy Diagnosis Assessed Neck pain (723.1) (M54.2) Plan Goals: Goals set and discussed today. 1. Independent HEP to allow for 50% reduction in max ADL C/C sx ( 5/10) 2-3wks 2. 0/10 night time sx to allow for uninterrupted sleep x1wk ( 7) 2-3wks 3. Survey score improvement from 24% to 15% (NDI) 3-4wks 4. ROM increase to allow for improved ADL (from 10/25 to 35 R/LSB cerv) 3-4wks Planned interventions include: cryotherapy, dry needling, education/instruction, electrical stimulation, home program, hot pack, kinesiotaping, manual therapy, self care/home management, therapeutic exercises and IASTM/cupping. Frequency and duration: 2 time(s) a week, for 4 weeks, for 8 visits. Potential to achieve rehab goals is excellent will continue to work on progressing toward plan of care as tolerated to be able to get a full nights sleep uninterrupted. Assessment Patient identified by name and Patient demo's palpable restriction in L cervical paraspinals with tenderness noted. Patient tolerates STM with mild difficulty. Pulleys incorporated with cervical rotation to ease tolerance with ROM. Patient demo's improvements in mobility in upper traps this date. Adult Risk Screening There are no spiritual/cultural practices/values/needs that are important to know Initial Fall Risk Screening: RADHA has not fallen in the last 6 months. RADHA does not have a fear of falling. She does not need assistance with sitting, standing or walking. Does not need assistance walking in her home. She does not need assistance in an unfamiliar setting. The patient is not using an assistive device. Pain Scale: On a scale of 0 to 10, the patient rates the pain at 3. Please identify location of pain: R mid neck pain. Pain Quality: Tenderness. Living Will. Living Will: No living will on file. Patient Declined. Healthcare POA: No healthcare proxy on file. Patient Declined. Declaration of Mental Health Treatment: No mental health treatment on file. Patient Declined. Insurance Insurance reviewed Visit number: 4 Self Pay Evaluating therapist Deni Garcia PT. M54.2 Subjective Patient reports:. Patient states not having pain but tenderness. Precautions: Fall Risk: none Pertinent medical HX includes: R ankle/LB/RLE/chest pain; CAD; DM; RA. Treatment Time in clinic started at 913 am Time in clinic ended at 959 am Total time in clinic is 46 minutes. Total timed code time is 43 minutes. Therapeutic exercise (35658): timed minutes 26, units 2 . UBE x3' Fwd/ x3' Bkwd (N) Pulleys with cervical rotation x3' 5 hold (N) Bwd shoulder rolls x15 (P, reps) Scap retraction x15 5? hold (P, reps) UT stretch 3 x 30? B (P, time) LS stretch 3 x 30? B (P, time) SCM stretch 3 x 30? B (P, time) Supine cervical rotation 10 x 10? hold . Manual Therapy (37157): timed minutes 17, units 1 . STW to SCM, UT, suboccipitals, paraspinals and LS with mild traction. Provided today: education . 05/02/22 [id number] Provided and reviewed for HEP patient demonstrated good understanding. 'Scores and Scales' Signatures Electronically signed by : Sharri Car PRESCHOOL EDUCATION DIRECTOR; May 10 2022 10:56AM EST (Author) Electronically signed by : Toan Garcia, PT; May 10 2022 11:39AM EST Normal [facility] PT Progress Noteon PT Progress Note Therapy Diagnosis Assessed Neck pain (723.1) (M54.2) Plan Goals: Goals set and discussed today. 1. Independent HEP to allow for 50% reduction in max ADL C/C sx ( 510) 2-3wks 2. 0/10 night time sx to allow for uninterrupted sleep x1wk ( 09/06) 2-3wks 3. Survey score improvement from 24% to 15% (NDI) 3-4wks 4. ROM increase to allow for improved ADL (from 03/26 to 35 R/LSB cerv) 3-4wks Planned interventions include: cryotherapy, dry needling, education/instruction, electrical stimulation, home program, hot pack, kinesiotaping, manual therapy, self care/home management, therapeutic exercises and IASTM/cupping. Frequency and duration: 2 time(s) a week, for 4 weeks, for 8 visits. Potential to achieve rehab goals is excellent will continue to work on progressing toward plan of care as tolerated to be able to turn head side to side with little to no difficulty with driving. Assessment Patient identified by name and Able to progress reps this date with no exacerbation of symptoms. Patient demo's restriction in Bilat SCM's during STM and able to tolerate manual traction. Demo's decreased cervical ROM in R compared to L rotation. Adult Risk Screening There are no spiritual/cultural practices/values/needs that are important to know Initial Fall Risk Screening: RADHA has not fallen in the last 6 months. RADHA does not have a fear of falling. She does not need assistance with sitting, standing or walking. Does not need assistance walking in her home. She does not need assistance in an unfamiliar setting. The patient is not using an assistive device. Pain Scale: On a scale of 0 to 10, the patient rates the pain at 2. Please identify location of pain: R mid neck pain. Living Will. Living Will: No living will on file. Patient Declined. Healthcare POA: No healthcare proxy on file. Patient Declined. Declaration of Mental Health Treatment: No mental health treatment on file. Patient Declined. Insurance Insurance reviewed Visit number: 3 Self Pay Evaluating therapist Deni Garcia PT. M54.2 Subjective Patient reports:. Patient states that she's feeling better. States that she's still having soreness in the right side of her neck, but states that she is feeling better. Precautions: Fall Risk: none Pertinent medical HX includes: R ankle/LB/RLE/chest pain; CAD; DM; RA. Treatment Time in clinic started at 747 am Time in clinic ended at 830 am Total time in clinic is 43 minutes. Total timed code time is 41 minutes. Therapeutic exercise (71289): timed minutes 26, units 2 . UBE x3' Fwd/ x3' Bkwd (N) Bwd shoulder rolls x15 (P, reps) Scap retraction x15 5? hold (P, reps) UT stretch 3 x 30? B (P, time) LS stretch 3 x 30? B (P, time) SCM stretch 3 x 30? B (P, time) Supine cervical rotation 10 x 10? hold . Manual Therapy (43571): timed minutes 15, units 1 . STW to SCM, UT, suboccipitals, paraspinals and LS with mild traction. Provided today: education . 05/02/22 [id number] Provided and reviewed for HEP patient demonstrated good understanding. 'Scores and Scales' Signatures Electronically signed by : Sharri Car PRESCHOOL EDUCATION DIRECTOR; May 08 2022 10:33AM EST (Author) Electronically signed by : Toan Garcia PT; May 08 2022 12:36PM EST Normal [facility] PT Progress Noteon 2 PT Progress Note Therapy Diagnosis Assessed Neck pain (723.1) (M54.2) Plan Goals: Goals set and discussed today. 1. Independent HEP to allow for 50% reduction in max ADL C/C sx ( 5/10) 2-3wks 2. 0/10 night time sx to allow for uninterrupted sleep x1wk ( 4/7) 2-3wks 3. Survey score improvement from 24% to 15% (NDI) 3-4wks 4. ROM increase to allow for improved ADL (from 10/25 to 35 R/LSB cerv) 3-4wks Planned interventions include: cryotherapy, dry needling, education/instruction, electrical stimulation, home program, hot pack, kinesiotaping, manual therapy, self care/home management, therapeutic exercises and IASTM/cupping. Frequency and duration: 2 time(s) a week, for 4 weeks, for 8 visits. Potential to achieve rehab goals is excellent Continue with STW as needed with ROM and postural strengthening for increased ease with ADL tolerance. Progress with POC, as tolerated. Assessment Patient identified by name and date of . Patient was able to progress with ROM this date w/o increased Sx reviewed importance of not over stretching she verbalized good understanding She presented with palpable with STW. Adult Risk Screening There are no spiritual/cultural practices/values/needs that are important to know Initial Fall Risk Screening: RADHA has not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 Work Phone: HbA1c (Bld) [Mass fraction] 10.0 % Abnormal [employer] [facility] Work Phone: Comment on above: Diagnosis of Diabete s-Adults Non-Diabetic: < or = 5.6% Increased risk for developing diabetes: 5.7-6.4% Diagnostic of diabetes: > or = 6.5%. Monitoring of Diabetes Age (y) Therapeutic Goal (%) Adults: >18 <7.0 Pediatrics: 13-18 <7.5 7-12 <8.0 0- 6 7.5-8.5 [place] [employer]. Diabetes Care 33(S1), Jun 2009. Laboratory - Chemistry and C hemistry - challengeon 09-06-2021 Albumin BCP dye [Mass/Vol] 4.2 g/dL 3.4 - 5.0 [employer] [facility] Work Phone: ALP [Catalytic activity/Vol] 78 U/L 33 - 110 [employer] [facility] Work Phone: ALT With P-5'-P [Catalytic activity/Vol] 17 U/L 7 - 45 [employer] [facility] Work Phone: Comment on above: Patients treated wit h Sulfasalazine may generate falsely decreased results for ALT. Anion gap [Moles/Vol] 10 mmol/L 10 - 20 [facility] Work Phone: AST With P-5'-P [Catalytic activity/Vol] 12 U/L 9 - 39 [facility] Work Phone: Bilirubin [Mass/Vol] 0.7 mg/dL 0.0 - 1.2 [facility] Work Phone: Calcium [Mass/Vol] 9.1 mg/dL 8.6 - 10.3 [facility] Work Phone: Chloride [Moles/Vol] 103 mmol/L 98 - 107 [facility] Work Phone: CO2 [Moles/Vol] 27 mmol/L 21 - 32 [facility] Work Phone: Creatinine [Mass/Vol] 0.57 mg/dL See Below [facility] Work Phone: Comment on above: Reference Range: 0.5 0 - 1.05 Glucose [Mass/Vol] 260 mg/dL above high threshold 74 - 99 [facility] Work Phone: Potassium [Moles/Vol] 3.9 mmol/L 3.5 - 5.3 [facility] Work Phone: Protein [Mass/Vol] 6.8 g/dL 6.4 - 8.2 [facility] Work Phone: Sodium [Moles/Vol] 136 mmol/L 136 - 145 [facility] [employer] [facility] Work Phone: Urea nitrogen [Mass/Vol] 16 mg/dL 6 - 23 [facility] Work Phone: No Panel Informationon 09-06 >90 >90 [facility] Work Phone: Comment on above: CALCULATIONS OF JUAN C MATED GFR ARE PERFORMED USING THE 2020 CKD-EPI STUDY REFIT EQUATION WITHOUT THE RACE VARIABLE FOR THE IDMS-TRACEABLE CREATININE METHODS.https://jasn.asnjournals.org/content//A SN.3883187185 CBCon 04-23-2021 Erythrocyte distribution width (RBC) [Ratio] 13.2 % Normal 11.5 - 14.5 [facility] Comment on above: Performed By: #### C BC #### [address] [address] Hematocrit (Bld) [Volume fraction] 46.0 % Normal 36.0 - 46.0 [facility] Comment on above: Performed By: #### C BC #### [address] [address] Hemoglobin (Bld) [Mass/Vol] 14.9 g/dL Normal 12.0 - 16.0 [facility] Comment on above: Performed By: #### C BC #### [address] [address] MCHC (RBC) [Mass/Vol] 32.4 g/dL Normal 32.0 - 36.0 [facility] Comment on above: Performed By: #### C BC #### [address] [address] MCV (RBC) [Entitic vol] 90 fL Normal 80 - 100 [facility] Comment on above: Performed By: #### C BC #### [address] [address] Platelets (Bld) [#/Vol] 186 10*3/uL Normal 150 - 450 [facility] Comment on above: Performed By: #### C BC #### [address] [address] RBC 5.10 x10E12/L Normal 4.00 - 5.20 [facility] Comment on above: Performed By: #### C BC #### [address] [address] WBC (Bld) [#/Vol] 7.4 10*3/uL Normal 4.4 - 11.3 [facility] Comment on above: Performed By: #### C BC #### [address] [address] COMPREHENSIVE PANELon 2020 Albumin [Mass/Vol] 4.2 g/dL Normal 3.4 - 5.0 [facility] Comment on above: Performed By: #### C MP #### [address] [address] ALP [Catalytic activity/Vol] 65 U/L Normal 33 - 110 [facility] Comment on above: Performed By: #### C MP #### [address] [address] ALT [Catalytic activity/Vol] 17 U/L Normal 7 - 45 [facility] Comment on above: Result Comment: Kiarra ents treated with Sulfasalazine may generate falsely decreased results for ALT. Performed By: #### C MP #### [address] [address] Anion gap [Moles/Vol] 11 mmol/L Normal 10 - 20 [facility] Comment on above: Performed By: #### C MP #### [address] [address] AST [Catalytic activity/Vol] 13 U/L Normal 9 - 39 [facility] Comment on above: Performed By: #### C MP #### [address] [address] Bilirubin [Mass/Vol] 0.3 mg/dL Normal 0.0 - 1.2 [facility] Comment on above: Performed By: #### C MP #### [address] [address] Calcium [Mass/Vol] 9.3 mg/dL Normal 8.6 - 10.3 [facility] Comment on above: Performed By: #### C MP #### [address] [address] Chloride [Moles/Vol] 106 mmol/L Normal 98 - 107 [facility] Comment on above: Performed By: #### C MP #### [address] [address] Creatinine [Mass/Vol] 0.67 mg/dL Normal 0.50 - 1.05 [facility] Comment on above: Performed By: #### C MP #### [address] [address] GFR- AM. >60 Normal >60 [facility] Comment on above: Result Comment: CALC ULATIONS OF ESTIMATED GFR ARE PERFORMED USING THE MDRD STUDY EQUATION FOR THE IDMS-TRACEABLE CREATININE METHODS. CLIN CHEM 2007;53:766-72 Performed By: #### C MP #### [address] [address] GFR-NON AM. >60 Normal >60 [facility] Comment on above: Performed By: #### C MP #### [address] [address] Glucose [Mass/Vol] 127 mg/dL High 74 - 99 [facility] Comment on above: Performed By: #### C MP #### [address] [address] HCO3 (Bld) [Moles/Vol] 25 mmol/L Normal 21 - 32 [facility] Comment on above: Performed By: #### C MP #### [address] [address] Potassium [Moles/Vol] 4.1 mmol/L Normal 3.5 - 5.3 [facility] Comment on above: Performed By: #### C MP #### [address] [address] Protein [Mass/Vol] 7.0 g/dL Normal 6.4 - 8.2 [facility] Comment on above: Performed By: #### C MP #### [address] [address] Sodium [Moles/Vol] 138 mmol/L Normal 136 - 145 [facility] Comment on above: Performed By: #### C MP #### [address] [address] Urea nitrogen [Mass/Vol] 20 mg/dL Normal 6 - 23 [facility] Comment on above: Performed By: #### C MP #### [address] [address] HEMOGLOBIN A1Con 04-23-2021 Glucose [Mass/Vol] 171 mg/dL Normal [facility] Comment on above: Performed By: #### H BA1E #### [address] [address] HbA1c (Bld) [Mass fraction] 7.6 % Abnormal [facility] Comment on above: Result Comment: Diag nosis of Diabetes-Adults Non-Diabetic: < or = 5.6% Increased risk for developing diabetes: 5.7-6.4% Diagnostic of diabetes: > or = 6.5% . Monitoring of Diabetes Age (y) Therapeutic Goal (%) Adults: >18 <7.0 Pediatrics: 13-18 <7.5 7-12 <8.0 0- 6 7.5-8.5 [place] [employer]. Diabetes Care 33(S1), Jun 2009. Performed By: #### H BA1E #### [address] [address] Hemoglobin A1Con 04-23-2021 Glucose [Mass/Vol] 171 mg/dL [facility] Work Phone: HbA1c (Bld) [Mass fraction] 7.6 % Abnormal [facility] Work Phone: Comment on above: Diagnosis of Diabete s-Adults Non-Diabetic: < or = 5.6% Increased risk for developing diabetes: 5.7-6.4% Diagnostic of diabetes: > or = 6.5%. Monitoring of Diabetes Age (y) Therapeutic Goal (%) Adults: >18 <7.0 Pediatrics: 13-18 <7.5 7-12 <8.0 0- 6 7.5-8.5 [place] [employer]. Diabetes Care 33(S1), Jun 2009. Laboratory - Chemistry and C hemistry - challengeon 04-23-2021 Albumin BCP dye [Mass/Vol] 4.2 g/dL 3.4 - 5.0 [facility] Work Phone: ALP [Catalytic activity/Vol] 65 U/L 33 - 110 [facility] Work Phone: ALT With P-5'-P [Catalytic activity/Vol] 17 U/L 7 - 45 [facility] Work Phone: Comment on above: Patients treated wit h Sulfasalazine may generate falsely decreased results for ALT. Anion gap [Moles/Vol] 11 mmol/L 10 - 20 - [facility] Work Phone: AST With P-5'-P [Catalytic activity/Vol] 13 U/L 9 - 39 [facility] Work Phone: Bilirubin [Mass/Vol] 0.3 mg/dL 0.0 - 1.2 [facility] [place] [place] Work Phone: Calcium [Mass/Vol] 9.3 mg/dL 8.6 - 10.3 [facility] Work Phone: Chloride [Moles/Vol] 106 mmol/L 98 - 107 [facility] [employer] [facility] Work Phone: CO2 [Moles/Vol] 25 mmol/L 21 - 32 [facility] Work Phone: Creatinine [Mass/Vol] 0.67 mg/dL See Below [facility] Work Phone: Comment on above: Reference Range: 0.5 0 - 1.05 Glucose [Mass/Vol] 127 mg/dL above high threshold 74 - 99 [facility] Work Phone: Potassium [Moles/Vol] 4.1 mmol/L 3.5 - 5.3 - [facility] Work Phone: Protein [Mass/Vol] 7.0 g/dL 6.4 - 8.2 [facility] [employer] [facility] Work Phone: Sodium [Moles/Vol] 138 mmol/L 136 - 145 [facility] Work Phone: Urea nitrogen [Mass/Vol] 20 mg/dL 6 - 23 -Medical [employer] [facility] Work Phone: Laboratory - Hematology and Cell countson 04-23-2021 Erythrocyte distribution width (RBC) [Ratio] 13.2 % See Below [facility] Work Phone: Comment on above: Reference Range: 11. 5 - 14.5 Hematocrit (Bld) [Volume fraction] 46.0 % See Below [facility] [employer] [facility] Work Phone: [phone] Comment on above: Reference Range: 36. 0 - 46.0 Hemoglobin (Bld) [Mass/Vol] 14.9 g/dL See Below [facility] [employer] [facility] Work Phone: Comment on above: Reference Range: 12. 0 - 16.0 MCHC (RBC) [Mass/Vol] 32.4 g/dL See Below [facility] Work Phone: [phone] Comment on above: Reference Range: 32. 0 - 36.0 MCV (RBC) [Entitic vol] 90 fL 80 - 100 [facility] Work Phone: Platelets (Bld) [#/Vol] 186 10*3/uL 150 - 450 [facility] Work Phone: RBC (Bld) [#/Vol] 5.10 {x10E12/L} See Below [facility] [employer] [facility] Work Phone: [phone] Comment on above: Reference Range: 4.0 0 - 5.20 WBC (Bld) [#/Vol] 7.4 10*3/uL 4.4 - 11.3 [facility] Work Phone: MAGNESIUMon 04-23-2021 Magnesium [Mass/Vol] 2.04 mg/dL Normal 1.60 - 2.40 [facility] Comment on above: Performed By: #### M G #### [facility] [address] [place] [address] Magnesium, Serumon Magnesium [Mass/Vol] 2.04 mg/dL See Below [facility] Work Phone: Comment on above: Reference Range: 1.6 0 - 2.40 No Panel Informationon 04-23 >60 >60 [facility] Work Phone: Comment on above: CALCULATIONS OF JUAN C MATED GFR ARE PERFORMED USING THE MDRD STUDY EQUATION FOR THE IDMS-TRACEABLE CREATININE METHODS. CLIN CHEM 2007;53:766-72 TSHon 04-23-2021 TSH Qn 1.96 m[IU]/L Normal 0.44 - 3.98 [facility] Comment on above: Result Comment: TSH testing is performed using different testing methodology at [facility] than at [facility]. Direct result comparisons should only be made within the same method. Performed By: #### T SH2 #### [place] [id number] TSH - Thyroid Stimulating Ho rmone, Serumon 04-23-2021 TSH Qn 1.96 m[IU]/L See Below [facility] Work Phone: Comment on above: Reference Range: 0.4 4 - 3.98 TSH testing is performed using different testing methodology at [facility] than at [facility]. Direct result comparisons should only be made within the same method. Tobacco Screening.on Fall risk assessment a) No falls within the last year [facility] [place] Work Phone: Tobacco use status CPHS a) Yes [facility] Work Phone: Tobacco Screening. Yes [facility] Work Phone: VITAMIN B12on 04-23-2021 Cobalamin (Vitamin B12) [Mass/Vol] 1245 pg/mL High 211 - 911 [facility] Comment on above: Performed By: #### V TB12 #### [address] [address] Vitamin B12, Serumon 021 Cobalamin (Vitamin B12) [Mass/Vol] 1245 pg/mL above high threshold 211 - 911 [employer] [facility] Work Phone: Hemoglobin A1Con 01-18-2021 Glucose [Mass/Vol] 177 mg/dL [employer] [facility] [employer] [facility] Work Phone: HbA1c (Bld) [Mass fraction] 7.8 % Abnormal [employer] [facility] Work Phone: Comment on above: Diagnosis of Diabete s-Adults Non-Diabetic: < or = 5.6% Increased risk for developing diabetes: 5.7-6.4% Diagnostic of diabetes: > or = 6.5%. Monitoring of Diabetes Age (y) Therapeutic Goal (%) Adults: >18 <7.0 Pediatrics: 13-18 <7.5 7-12 <8.0 0- 6 7.5-8.5 [place] [employer]. Diabetes Care 33(S1), Jun 2009. Laboratory - Chemistry and C hemistry - challengeon 01-18-2021 Albumin BCP dye [Mass/Vol] 4.2 g/dL 3.4 - 5.0 [employer] [facility] Work Phone: ALP [Catalytic activity/Vol] 75 U/L 33 - 110 [employer] [facility] Work Phone: ALT With P-5'-P [Catalytic activity/Vol] 20 U/L 7 - 45 [facility] Work Phone: Comment on above: Patients treated wit h Sulfasalazine may generate falsely decreased results for ALT. Anion gap [Moles/Vol] 10 mmol/L 10 - 20 [employer] [facility] Work Phone: AST With P-5'-P [Catalytic activity/Vol] 11 U/L 9 - 39 [employer] [facility] Work Phone: Bilirubin [Mass/Vol] 0.5 mg/dL 0.0 - 1.2 [employer] [employer] [facility] Work Phone: Calcium [Mass/Vol] 9.5 mg/dL 8.6 - 10.3 -Med [facility] Work Phone: Chloride [Moles/Vol] 103 mmol/L 98 - 107 [facility] Work Phone: CO2 [Moles/Vol] 29 mmol/L 21 - 32 [facility] Work Phone: Creatinine [Mass/Vol] 0.64 mg/dL See Below - [facility] Work Phone: Comment on above: Reference Range: 0.5 0 - 1.05 Glucose [Mass/Vol] 240 mg/dL above high threshold 74 - 99 [facility] Work Phone: Potassium [Moles/Vol] 4.1 mmol/L 3.5 - 5.3 [facility] Work Phone: Protein [Mass/Vol] 7.1 g/dL 6.4 - 8.2 -[facility] Work Phone: Sodium [Moles/Vol] 138 mmol/L 136 - 145 -[facility] Work Phone: Urea nitrogen [Mass/Vol] 17 mg/dL 6 - 23 -[facility] Work Phone: No Panel Informationon 01-18 >60 >60 [facility] Work Phone: Comment on above: CALCULATIONS OF JUAN C MATED GFR ARE PERFORMED USING THE MDRD STUDY EQUATION FOR THE IDMS-TRACEABLE CREATININE METHODS. CLIN CHEM 2007;53:766-72 Tobacco Screening.on 021 Fall risk assessment a) No falls within the last year -[facility] Work Phone: Tobacco use status CP a) Yes -[facility] Work Phone: Tobacco Screening.on 021 Fall risk assessment a) No falls within the last year -[facility] Work Phone: Tobacco use status CPHS a) Yes [facility] [employer] Phone: Tobacco Screening. Yes [employer] Work Phone: Falls Risk Screeningon 11-16 Fall risk assessment a) No falls within the last year [facility] [employer] Phone: Tobacco use status CPHS a) Yes [facility] Work Phone: Falls Risk Screening Yes [facility] [facility] [facility] Phone: Tobacco Screening.on 021 Fall risk assessment a) No falls within the last year [facility] Phone: Tobacco use status CP a) Yes [facility] Phone: Tobacco Screening. a) Yes [employer] [facility] Phone: Tobacco Screening. Yes [employer] [facility] Phone: No Panel Informationon 11-01 Normal [facility] Phone: Falls Risk Screeningon 10-25 Fall risk assessment a) No falls within the last year [facility] Phone: Tobacco use status CP a) Yes [facility] Phone: Falls Risk Screening a) Yes [employer] [facility] Phone: Falls Risk Screening Yes [facility] [facility] Work Phone: C Reactive Protein, Serumon 09-27-2020 CRP [Mass/Vol] 0.21 mg/dL [employer] [facility] Phone: Comment on above: REF VALUE< 1.00 Hemoglobin A1Con 09-27-2020 Glucose [Mass/Vol] 177 mg/dL [employer] [facility] Work Phone: HbA1c (Bld) [Mass fraction] 7.8 % -Medical [facility] Work Phone: Comment on above: Diagnosis of Diabete s-Adults Non-Diabetic: < or = 5.6% Increased risk for developing diabetes: 5.7-6.4% Diagnostic of diabetes: > or = 6.5%. Monitoring of Diabetes Age (y) Therapeutic Goal (%) Adults: >18 <7.0 Pediatrics: 13-18 <7.5 7-12 <8.0 0- 6 7.5-8.5 [place] [employer]. Diabetes Care 33(S1), Jun 2009. Laboratory - Chemistry and C hemistry - challengeon 09-27-2020 Albumin BCP dye [Mass/Vol] 4.3 g/dL 3.4 - 5.0 -[employer] [facility] Work Phone: ALP [Catalytic activity/Vol] 87 U/L 33 - 110 -Medical [facility] Work Phone: ALT With P-5'-P [Catalytic activity/Vol] 24 U/L 7 - 45 [employer] [facility] Work Phone: Comment on above: Patients treated wit h Sulfasalazine may generate falsely decreased results for ALT. Anion gap [Moles/Vol] 11 mmol/L 10 - 20 - Medical [facility] Work Phone: AST With P-5'-P [Catalytic activity/Vol] 14 U/L 9 - 39 -Medical [facility] Work Phone: Bilirubin [Mass/Vol] 0.8 mg/dL 0.0 - 1.2 -[employer] [facility] Work Phone: Calcium [Mass/Vol] 9.2 mg/dL 8.6 - 10.3 -Med ical [facility] Work Phone: Chloride [Moles/Vol] 105 mmol/L 98 - 107 [employer] [facility] Work Phone: CO2 [Moles/Vol] 25 mmol/L 21 - 32 -Medica l [facility] Work Phone: Creatinine [Mass/Vol] 0.58 mg/dL See Below [facility] Work Phone: Comment on above: Reference Range: 0.5 0 - 1.05 Glucose [Mass/Vol] 208 mg/dL above high threshold 74 - 99 [facility] Work Phone: Potassium [Moles/Vol] 3.8 mmol/L 3.5 - 5.3 - [facility] Work Phone: Protein [Mass/Vol] 6.9 g/dL 6.4 - 8.2 [facility] ical Associates [facility] Work Phone: Sodium [Moles/Vol] 137 mmol/L 136 - 145 [facility] Work Phone: Urea nitrogen [Mass/Vol] 18 mg/dL 6 - 23 [facility] Work Phone: Laboratory - Hematology and Cell countson 09-27-2020 Erythrocyte distribution width (RBC) [Ratio] 12.9 % See Below [facility] Work Phone: Comment on above: Reference Range: 11. 5 - 14.5 Hematocrit (Bld) [Volume fraction] 45.7 % See Below [facility] Work Phone: Comment on above: Reference Range: 36. 0 - 46.0 Hemoglobin (Bld) [Mass/Vol] 15.3 g/dL See Below [facility] Work Phone: Comment on above: Reference Range: 12. 0 - 16.0 MCHC (RBC) [Mass/Vol] 33.4 g/dL See Below [facility] Work Phone: Comment on above: Reference Range: 32. 0 - 36.0 MCV (RBC) [Entitic vol] 90 fL 80 - 100 [facility] Work Phone: Platelets (Bld) [#/Vol] 153 10*3/uL 150 - 450 [employer] [facility] Work Phone: RBC (Bld) [#/Vol] 5.11 {x10E12/L} See Below [facility] Work Phone: Comment on above: Reference Range: 4.0 0 - 5.20 WBC (Bld) [#/Vol] 6.2 10*3/uL 4.4 - 11.3 -[facility] Work Phone: Lipid Panelon 09-27-2020 Cholesterol [Mass/Vol] 217 mg/dL above hig h threshold 0 - 199 [employer] [facility] Work Phone: Comment on above: . AGE DESIRABLE BORD LEANN HIGH HIGH 0-19 Y 0 - 169 170 - 199 >/= 200 20-24 Y 0 - 189 190 - 224 >/= 225 >24 Y 0 - 199 200 - 239 >/= 240 All ranges are based on fasting samples. Specific therapeutic targets will vary based on patient-specific cardiac risk.. Pediatric guidelines reference:Pediatrics 2011, 128(S5). Adult guidelines reference: NCEP ATPIII Guidelines, WADE 2001, 258:2486-97. Venipuncture immediately after or during the administration of Metamizole may lead to falsely low results. Testing should be performed immediately prior to Metamizole dosing. Cholesterol in HDL [Mass/Vol] 56.0 mg/dL [employer] [facility] Work Phone: Comment on above: . AGE VERY LOW LOW N ORMAL HIGH 0-19 Y < 35 < 40 40-45 ---- 20-24 Y ---- < 40 >45 ---- >24 Y ---- < 40 40-60 >60. Cholesterol in LDL [Mass/Vol] 117 mg/dL above high threshold 0 - 99 [employer] [facility] Work Phone: Comment on above: . NEAR BORD AGE IGNACIO RABLE OPTIMAL HIGH HIGH VERY HIGH 0-19 Y 0 - 109 --- 110-129 >/= 130 ---- 20-24 Y 0 - 119 --- 120-159 >/= 160 ---- >24 Y 0 - 99 100-129 130-159 160-189 >/=190. Cholesterol non HDL [Mass/Vol] 161 mg/dL [employer] [facility] Work Phone: Comment on above: AGE DESIRABLE BORDER LINE HIGH HIGH VERY HIGH 0-19 Y 0 - 119 120 - 144 >/= 145 >/= 160 20-24 Y 0 - 149 150 - 189 >/= 190 ---- >24 Y 30 MG/DL ABOVE LDL CHOLESTEROL GOAL. Cholesterol.total/Chol esterol in HDL [Mass ratio] 3.9 {ratio} [employer] [facility] Work Phone: Comment on above: REF VALUESDESIRABLE < 3.4HIGH RISK > 5.0 Triglyceride [Mass/Vol] 218 mg/dL above high threshold 0 - 149 [employer] [facility] Work Phone: Comment on above: . AGE DESIRABLE BORD LEANN HIGH HIGH VERY HIGH 0 D-90 D 19 - 174 ---- ---- ----91 D- 9 Y 0 - 74 75 - 99 >/= 100 ---- 10-19 Y 0 - 89 90 - 129 >/= 130 ---- 20-24 Y 0 - 114 115 - 149 >/= 150 ---- >24 Y 0 - 149 150 - 199 200- 499 >/= 500. Venipuncture immediately after or during the administration of Metamizole may lead to falsely low results. Testing should be performed immediately prior to Metamizole dosing. Lipid Panel 44 mg/dL above high threshold 0 - 40 [employer] [facility] Work Phone: Magnesium, Serumon Magnesium [Mass/Vol] 1.96 mg/dL See Below [facility] Work Phone: Comment on above: Reference Range: 1.6 0 - 2.40 No Panel Informationon 09-27 >60 >60 [employer] [facility] Work Phone: Comment on above: CALCULATIONS OF JUAN C MATED GFR ARE PERFORMED USING THE MDRD STUDY EQUATION FOR THE IDMS-TRACEABLE CREATININE METHODS. CLIN CHEM 2007;53:766-72 Sedimentation Rate, Erythroc yteon 09-27-2020 ESR (Bld) [Velocity] 18 mm/h 0 - 20 [facility] [place] Work Phone: TSH - Thyroid Stimulating Ho rony, Serumon 09-27-2020 TSH Qn 2.11 m[IU]/L See Below [facility] Work Phone: Comment on above: Reference Range: 0.4 4 - 3.98 TSH testing is performed using different testing methodology at [facility] than at other [facility] hospitals. Direct result comparisons should only be made within the same method. Vitamin B12, Serumon Cobalamin (Vitamin B12) [Mass/Vol] 184 pg/mL below low threshold 211 - 911 [facility] Work Phone: Tobacco Screening.on Fall risk assessment a) No falls within the last year [facility] [place] [facility] Work Phone: Tobacco Screening. a) Yes [employer] [facility] Work Phone: Tobacco Screening. Yes [employer] Work Phone: CMPon 05-22-2018 Albumin [Mass/Vol] 4.3 g/dL Normal 3.4-5.0 [facility] Comment on above: Performed By: #### 2 [id number] #### LATISHA [employer] [address] [place] [address] Albumin/Globulin [Mass ratio] 1.6 {ratio} Normal 1.1-1.9 [facility] Comment on above: Performed By: #### 2 [id number] #### LATISHA [employer] [facility] [place] [address] Alk Phos 55 Int._Unit/L Normal 33-110 [facility] Comment on above: Performed By: #### 2 [id number] #### LATISHA [employer] [facility] [place] [address] ALT [Catalytic activity/Vol] 21 Int._Unit/L Normal 7-45 [facility] Comment on above: Performed By: #### 2 [id number] #### LATISHA [employer] [address] [place] [address] Anion gap [Moles/Vol] 7 mmol/L Low 10-20 [facility] Comment on above: Performed By: #### 2 [id number] #### LATISHA [employer] [address] [place] [address]69 AST [Catalytic activity/Vol] 16 Int._Unit/L Normal 9-39 [facility] Comment on above: Performed By: #### 2 [id number] #### LATISHA [employer] [address] [place] [address]381 Bili Total 0.77 mg/dL Normal 0.00-1.20 [facility] Comment on above: Performed By: #### 2 [id number] #### [facility] [employer] [address] [place] [address]454 Calcium [Mass/Vol] 9.7 mg/dL Normal 8.6-10.3 [facility] Comment on above: Performed By: #### 2 [id number] #### [facility] [employer] [address] [place] [address] 66448 Chloride [Moles/Vol] 105 mmol/L Normal 98-107 [facility] Comment on above: Performed By: #### 2 [id number] #### LATISHA [employer] [address] [place] [address]57 CO2 [Moles/Vol] 32.0 mmol/L Normal 21.0-32.0 [facility] Comment on above: Performed By: #### 2 [id number] #### LATISHA [employer] [address] [place] [address]27 Creatinine [Mass/Vol] 0.7 mg/dL Normal 0.5-1.1 [facility] Comment on above: Performed By: #### 2 [id number] #### LATISHA [employer] [address] [place] [address] 57699 Globulin (S) [Mass/Vol] 3.0 g/dL Normal 2.0-4.0 [facility] Comment on above: Performed By: #### 2 [id number] #### LATISHA [employer] [address] [place] [address] 59483 Glucose [Mass/Vol] 117 mg/dL High 70-99 [facility] Comment on above: Performed By: #### 2 [id number] #### LAT[employer]HA [employer] [address] [place] [address]166 Potassium [Moles/Vol] 3.8 mmol/L Normal 3.5-5.3 [facility] Comment on above: Performed By: #### 2 [id number] #### LATISHA [employer] [address] [place] [address]69 Protein [Mass/Vol] 7.0 g/dL Normal 6.4-8.2 [facility] Comment on above: Performed By: #### 2 [id number] #### LAT[employer]HA [employer] [address] [place] [address]127 Sodium [Moles/Vol] 140 mmol/L Normal 136-145 [facility] Comment on above: Performed By: #### 2 [id number] #### LAT[employer]HA [employer] [address] [place] [address] Urea nitrogen [Mass/Vol] 17 mg/dL Normal 6-23 [facility] Comment on above: Performed By: #### 2 [id number] #### LAT[employer]HA [employer] [address] [place] [address] Urea nitrogen/Creatinine [Mass ratio] 24.3 ratio Normal 5.4-30.0 [facility] Comment on above: Performed By: #### 2 [id number] #### LATISHA [employer] [address] [place] [address] Lipid Profileon 05-22-2018 Cholesterol [Mass/Vol] 159 mg/dL Normal 0-199 [facility] Comment on above: Result Comment: TOTA L CHOLEESTEROL: <200 NORMAL 200 - 239 BORDERLINE HIGH >240 HIGH Performed By: #### 3 [id number] #### LATISHA [employer] [address] [place] [address] Cholesterol in HDL [Mass/Vol] 69 mg/dL High 40-60 [facility] Comment on above: Performed By: #### 3 [id number] #### LATISHA [employer] [address] [place] [address] 18710 Cholesterol in LDL [Mass/Vol] 73 mg/dL Normal 0-130 [facility] Comment on above: Result Comment: <100 OPTIMAL 100-129 NEAR / ABOVE OPTIMAL 130-159 BORDERLINE HIGH 160-189 HIGH >190 VERY HIGH CALC LDL NOT VALID WHEN TRIGLYCERIDE IS >400 MG/DL Performed By: #### 3 [id number] #### LATISHA [employer] [facility] [place] [address] Cholesterol in VLDL [Mass/Vol] 17 mg/dL Normal 0-40 [facility] Comment on above: Performed By: #### 3 [id number] #### LATISHA [employer] [facility] [place] [address] Triglyceride [Mass/Vol] 83 mg/dL Normal 0-149 [facility] Comment on above: Result Comment: AGE DESIRABLE BORDERLINE HIGH 91 D - 9 Y 0 - 74 75 - 99 > 100 10 - 19 Y 0 - 89 90 - 129 > 130 20 -24 Y 0 - 114 115 - 149 > 150 > 25 0 - 149 150 - 199 200 - 499 Performed By: #### 3 [id number] #### LATISHA [employer] [address] [place] [address] eGFRon 05-22-2018 GFR/1.73 sq M predicted among non-blacks MDRD (S/P/Bld) [Vol rate/Area] mL/min/{1.73_m2} Normal [facility] Comment on above: Order Comment: Order added by Discern Expert. Performed By: #### 1 [id number] #### LATISHA [employer] [address] [place] [address] Vital Signs Date Time Vital Sign Value Performing Clinician Facility 09-29-2023 14:20-0400 Body mass index (BMI) [Ratio] 29.95 kg/m2 Glendy Deleon MD Work Phone: [facility] 09-29-2023 14:20-040 Body weight 81.65 kg Glendy Deleon MD Work Phone: [facility] 09-29-2023 14:20-0400 Diastolic blood pressure 82 mm[Hg] Glendy Deleon MD Work Phone: [facility] 09-29-2023 14:20-0400 Systolic blood pressure 144 mm[Hg] Glendy Deleon MD Work Phone: [facility] 07-09-2023 17:22-0500 Body temperature 97.6 [degF] [facility] 07-09-2023 17:22-0500 Diastolic blood pressure 78 mm[Hg] [facility] 07-09-2023 17:22-0500 Heart rate 66 /min [facility] 07-09-2023 17:22-0500 Respiratory rate 16 /min [facility] 07-09-2023 17:22-0500 SaO2% (BldA) [Mass fraction] 99 % [facility] 07-09-2023 17:22-0500 Systolic blood pressure 146 mm[Hg] [facility] 07-09-2023 14:41-0500 Body height 165.1 cm [facility] 07-09-2023 14:41-0500 Body mass index (BMI) [Ratio] 30.9 kg/m2 [facility] 07-09-2023 14:41-0500 Body weight 84.48 kg [facility] 04-11-2022 14:59-0500 Body height 165.1 cm Tish Vaughn Work Phone: [employer] [facility] Work Phone: 04-11-2022 14:59-0500 Body mass index (BMI) [Ratio] 33.51 kg/m2 Tish Vaughn Work Phone: [employer] [facility] Work Phone: 04-11-2022 14:59-0500 Body surface area Derived from formula 1.98 m2 Tish Vaughn Work Phone: [employer] [facility] Work Phone: 04-11-2022 14:59-0500 Body weight 91.35 kg Tish Vaughn Work Phone: [employer] [facility] Work Phone: 04-11-2022 14:59-0500 Diastolic blood pressure 90 mm[Hg] iTsh Vaughn Work Phone: [employer] [facility] Work Phone: 04-11-2022 14:59-0500 Heart rate 68 /min Tish Vaughn Work Phone: [facility] Work Phone: 04-11-2022 14:59-0500 SaO2% (BldA) [Mass fraction] 97 % Tish Vaughn Work Phone: [facility] Work Phone: 04-11-2022 14:59-0500 Systolic blood pressure 150 mm[Hg] Tish Vaughn Work Phone: [facility] Work Phone: 04-02-2022 15:33-0400 Body height 165.1 cm Tish Vaughn Work Phone: [facility] Work Phone: 04-02-2022 15:33-0400 Body mass index (BMI) [Ratio] 33.48 kg/m2 Tish Vaughn Work Phone: [facility] Work Phone: 04-02-2022 15:33-0400 Body surface area Derived from formula 1.98 m2 Tish Vaughn Work Phone: [facility] Work Phone: 04-02-2022 15:33-0400 Body weight 91.26 kg Tish Vaughn Work Phone: [facility] Work Phone: 04-02-2022 15:33-0400 Diastolic blood pressure 80 mm[Hg] Tish Vaughn Work Phone: [facility] Work Phone: 04-02-2022 15:33-0400 Heart rate 80 /min Tish Vaughn Work Phone: [facility] Work Phone: 04-02-2022 15:33-0400 SaO2% (BldA) [Mass fraction] 97 % Tish Vaughn Work Phone: [facility] Work Phone: 04-02-2022 15:33-0400 Systolic blood pressure 124 mm[Hg] Tish Vaughn Work Phone: [facility] Work Phone: 09-10-2021 09:21-0400 Body height 165.1 cm Tish Vaughn Work Phone: [facility] Work Phone: 09-10-2021 09:21-0400 Body mass index (BMI) [Ratio] 34.3 kg/m2 Tish Vaughn Work Phone: [facility] Work Phone: 09-10-2021 09:21-0400 Body surface area Derived from formula 2 m2 Tish Vaughn Work Phone: [facility] Work Phone: 09-10-2021 09:21-0400 Body weight 93.5 kg Tish Vaughn Work Phone: [facility] Work Phone: 09-10-2021 09:21-0400 Diastolic blood pressure 78 mm[Hg] Tish Vaughn Work Phone: [facility] Work Phone: 09-10-2021 09:21-0400 Heart rate 63 /min Tish Vaughn Work Phone: [facility] Work Phone: 09-10-2021 09:21-0400 SaO2% (BldA) [Mass fraction] 97 % Tish Vaughn Work Phone: [facility] Work Phone: 09-10-2021 09:21-0400 Systolic blood pressure 118 mm[Hg] Tish Vaughn Work Phone: [facility] Work Phone: 04-23-2021 13:58-0500 Body height 165.1 cm Tish Vaughn Work Phone: [facility] Work Phone: 04-23-2021 13:58-0500 Body mass index (BMI) [Ratio] 33.18 kg/m2 Tish Vaughn Work Phone: [facility] Work Phone: 04-23-2021 13:58-0500 Body surface area Derived from formula 1.98 m2 Tish Vaughn Work Phone: [facility] Work Phone: 04-23-2021 13:58-0500 Body temperature 97.7 [degF] Tish Vaughn Work Phone: [facility] Work Phone: 04-23-2021 13:58-0500 Body weight 90.44 kg Tish Vaughn Work Phone: [facility] Work Phone: 04-23-2021 13:58-0500 Diastolic blood pressure 80 mm[Hg] Tish Vaughn Work Phone: [facility] Work Phone: 04-23-2021 13:58-0500 Heart rate 63 /min Tish Vaughn Work Phone: [facility] Work Phone: 04-23-2021 13:58-0500 SaO2% (BldA) [Mass fraction] 98 % Tish Vaughn Work Phone: [facility] Work Phone: 04-23-2021 13:58-0500 Systolic blood pressure 128 mm[Hg] Tish Vaughn Work Phone: [facility] Work Phone: 01-18-2021 09:14-0400 Body height 165.1 cm Tish Vaughn Work Phone: [facility] Work Phone: 01-18-2021 09:14-0400 Body mass index (BMI) [Ratio] 34.21 kg/m2 Tish Vaughn Work Phone: [facility] Work Phone: 01-18-2021 09:14-0400 Body surface area Derived from formula 2 m2 Tish Vaughn Work Phone: [facility] Work Phone: 01-18-2021 09:14-0400 Body temperature 97.7 [degF] Tish Vaughn Work Phone: [facility] Work Phone: 01-18-2021 09:14-0400 Body weight 93.24 kg Tish Vaughn Work Phone: [facility] Work Phone: 01-18-2021 09:14-0400 Diastolic blood pressure 84 mm[Hg] Tish Vaughn Work Phone: [facility] Work Phone: 01-18-2021 09:14-0400 Heart rate 81 /min Tish Vaughn Work Phone: [facility] Work Phone: 01-18-2021 09:14-0400 SaO2% (BldA) [Mass fraction] 98 % Tish Vaughn Work Phone: [facility] Work Phone: 01-18-2021 09:14-0400 Systolic blood pressure 132 mm[Hg] Tish Vaughn Work Phone: [facility] Work Phone: 12-18-2020 13:48-0400 Body height 165.1 cm Tish Vaughn Work Phone: [facility] Work Phone: 12-18-2020 13:48-0400 Body mass index (BMI) [Ratio] 34.61 kg/m2 Tish Vaughn Work Phone: [facility] Work Phone: 12-18-2020 13:48-0400 Body surface area Derived from formula 2.01 m2 Tish Vaughn Work Phone: [facility] Work Phone: 12-18-2020 13:48-0400 Body temperature 97.3 [degF] Tish Vaughn Work Phone: [facility] Work Phone: 12-18-2020 13:48-0400 Body weight 94.35 kg Tish Vaughn Work Phone: -Medical [facility] Work Phone: 12-18-2020 13:48-0400 Diastolic blood pressure 74 mm[Hg] Tish Vaughn Work Phone: [facility] Work Phone: 12-18-2020 13:48-0400 Heart rate 89 /min Tish Vaughn Work Phone: -[facility] Work Phone: 12-18-2020 13:48-0400 SaO2% (BldA) [Mass fraction] 96 % Tish Vaughn Work Phone: [facility] Work Phone: 12-18-2020 13:48-0400 Systolic blood pressure 118 mm[Hg] Tish Vaughn Work Phone: [facility] Work Phone: 11-16-2020 15:32-0400 Body height 165.1 cm Tish Vaughn Work Phone: [facility] Work Phone: 11-16-2020 15:32-0400 Body mass index (BMI) [Ratio] 36.28 kg/m2 Tish Vaughn Work Phone: -Medical [facility] Work Phone: 11-16-2020 15:32-0400 Body surface area Derived from formula 2.05 m2 Tish Vaughn Work Phone: -Medical [facility] Work Phone: 11-16-2020 15:32-0400 Body temperature 97.8 [degF] Tish Vaughn Work Phone: -Medical [facility] Work Phone: 11-16-2020 15:32-0400 Body weight 98.88 kg Tish Vaughn Work Phone: -Medical [facility] Work Phone: 11-16-2020 15:32-0400 Diastolic blood pressure 74 mm[Hg] Tish Vaughn Work Phone: [facility] Work Phone: 11-16-2020 15:32-0400 Heart rate 82 /min Tish Vaughn Work Phone: -Medical [facility] Work Phone: 11-16-2020 15:32-0400 SaO2% (BldA) [Mass fraction] 96 % Tish Vaughn Work Phone: [facility] Work Phone: 11-16-2020 15:32-0400 Systolic blood pressure 112 mm[Hg] Tish Vaughn Work Phone: [facility] [facility] Work Phone: 11-03-2020 10:44-0400 Body height 165.1 cm Tish Vaughn Work Phone: [facility] Work Phone: 11-03-2020 10:44-0400 Body mass index (BMI) [Ratio] 36 kg/m2 Tish Vaughn Work Phone: -[facility] Work Phone: 11-03-2020 10:44-0400 Body surface area Derived from formula 2.05 m2 Tish Vaughn Work Phone: [facility] Work Phone: 11-03-2020 10:44-0400 Body temperature 97.5 [degF] Tish Vaughn Work Phone: -[facility] Work Phone: 11-03-2020 10:44-0400 Body weight 98.12 kg Tish Vaughn Work Phone: -[facility] Work Phone: 11-03-2020 10:44-0400 Diastolic blood pressure 84 mm[Hg] Tish Vaughn Work Phone: [facility] Work Phone: 11-03-2020 10:44-0400 Heart rate 65 /min Tish Vaughn Work Phone: -[facility] Work Phone: 11-03-2020 10:44-0400 SaO2% (BldA) [Mass fraction] 97 % Tish Vaughn Work Phone: [facility] Work Phone: 11-03-2020 10:44-0400 Systolic blood pressure 122 mm[Hg] Tish Vaughn Work Phone: [facility] Work Phone: 10-25-2020 08:46-0400 Body height 165.1 cm Tish Vaughn Work Phone: [facility] Work Phone: 10-25-2020 08:46-0400 Body mass index (BMI) [Ratio] 35.8 kg/m2 Tish Vaughn Work Phone: [facility] Work Phone: 10-25-2020 08:46-0400 Body surface area Derived from formula 2.04 m2 Tish Vaughn Work Phone: [facility] Work Phone: 10-25-2020 08:46-0400 Body temperature 97.8 [degF] Tish Vaughn Work Phone: [facility] Work Phone: 10-25-2020 08:46-0400 Body weight 97.58 kg Tish Vaughn Work Phone: -[facility] Work Phone: 10-25-2020 08:46-0400 Diastolic blood pressure 76 mm[Hg] Tish Vaughn Work Phone: [facility] Work Phone: 10-25-2020 08:46-0400 Heart rate 81 /min Tish Vaughn Work Phone: [facility] Work Phone: 10-25-2020 08:46-0400 SaO2% (BldA) [Mass fraction] 97 % Tish Vaughn Work Phone: [facility] Work Phone: 10-25-2020 08:46-0400 Systolic blood pressure 118 mm[Hg] Tish Vaughn Work Phone: [facility] Work Phone: 09-26-2020 14:41-0400 Body height 165.1 cm Tish Vaughn Work Phone: [facility] Work Phone: 09-26-2020 14:41-0400 Body mass index (BMI) [Ratio] 36.28 kg/m2 Tish Vaughn Work Phone: [facility] Work Phone: 09-26-2020 14:41-0400 Body surface area Derived from formula 2.05 m2 Tish Vaughn Work Phone: [facility] Work Phone: 09-26-2020 14:41-0400 Body temperature 97.8 [degF] Tish Vaughn Work Phone: -[employer] [facility] Work Phone: 09-26-2020 14:41-0400 Body weight 98.88 kg Tish Vaughn Work Phone: -[facility] Work Phone: 09-26-2020 14:41-0400 Diastolic blood pressure 98 mm[Hg] Tish Vaughn Work Phone: [facility] Work Phone: 09-26-2020 14:41-0400 Heart rate 77 /min Tish Vaughn Work Phone: [facility] Work Phone: 09-26-2020 14:41-0400 SaO2% (BldA) [Mass fraction] 98 % Tish Vaughn Work Phone: [facility] [facility] Work Phone: 09-26-2020 14:41-0400 Systolic blood pressure 134 mm[Hg] Tish Vaughn Work Phone: [facility] [facility] Work Phone: Encounters Encounter Date Encounter Type Care Provider Facility Start: 07-05-2024 End: 07-05-2024 Emergency department patient visit PHYSICIAN [facility] Start: 10-13-2023 Telephone encounter Denny Michele MD Work Phone: OB/Gynecology Comment on above: Results Start: 10-06-2023 Documentation procedure Mammog travis Coordinator [facility] Department Start: 10-06-2023 Letter encounter Mammography Coordinator [facility] Start: 10-06-2023 End: 10-06-2023 ambulatory GLENDY DELEON Facility:[facility] Start: 10-06-2023 Encounter for gynecological examination (general) (routine) without abnormal findings GLENDY DELEON [facility] Start: 10-06-2023 End: 10-06-2023 Patient encounter status Screen [facility] Start: 10-06-2023 End: 10-06-2023 Subsequent hospital visit by physician Screen [facility]amm[facility] M[facility] Comment on above: Encounter for gyneco logical examination (general) (routine) without abnormal findings [Z01.419] Start: 09-29-2023 End: 09-30-2023 ambulatory GLENDY DELEON Facility:[facility] Start: 09-29-2023 End: 09-29-2023 Patient encounter procedure Glendy Deleon MD Work Phone: OB/Gynecology Comment on above: Encounter for gyneco logical examination (general) (routine) without abnormal findings (Primary Dx); Encounter for screening for human papillomavirus (HPV); Pap smear for cervical cancer screening; Encounter for screening mammogram for breast cancer Start: 09-29-2023 End: 09-29-2023 Patient encounter status Glendy Deleon MD Work Phone: [facility] Start: 07-09-2023 End: 07-09-2023 Emergency department patient visit Tish Vaughn Facility:[facility] Start: 07-09-2023 End: 07-09-2023 Emergency department patient visit [facility] Work Phone: Start: 05-29-2022 Patient encounter procedure Tish Vaughn Work Phone: [facility] Work Phone: Start: 05-29-[address] Tish Jones Facility:[id number] Start: 05-20-2022 Patient encounter procedure Tish Vaughn Work Phone: [facility] Work Phone: Start: 05-17-[address] Tish Jones Facility:[id number] Start: 05-17-2022 Patient encounter procedure Tish Vaughn Work Phone: [facility] Work Phone: Start: 05-13-2022 Patient encounter procedure Tish Vaughn Work Phone: [facility] Work Phone: Start: 05-10-2022 Patient encounter procedure Tish Vaughn Work Phone: [facility] Work Phone: Start: 05-10-2022 PTFUADULT4, Provider : Sharri Car, Status: Pen, Time: 9:15 AM Tish Vaughn Work Phone: [facility] Work Phone: Start: 05-10-[address] Tish Jones Facility:[id number] Start: 05-08-[address] Tish Jones Facility:[id number] Start: 05-08-2022 Patient encounter procedure Tish Vaughn Work Phone: [facility] Work Phone: Start: 05-02-[address] Tish De Guzman pedrocharly Johana Facility:[id number] Start: 05-02-2022 Patient encounter procedure Tish Vaughn Work Phone: [facility] Work Phone: Start: 04-24-2022 Patient encounter procedure Tish Vaughn Work Phone: [facility] Work Phone: Start: 04-24-[address] Tish De Guzman regino Vaughn Facility:[id number] Start: 04-11-2022 Office outpatient vi sit 15 minutes Tish T Furness Work Phone: -[facility] Work Phone: Start: 04-11-2022 ambulatory TSIH Deloris FURNESS Facil [id number] Start: 04-04-2022 Chart Update Tish Mora Furn ess Work Phone: -[facility] Work Phone: Start: 04-02-[address] Ollie Hernandez Facility:[id number] Start: 04-02-2022 ambulatory TISH Deloris FURNESS Facil [id number] Start: 11-19-2021 AUDIT Tish T Furn ess Work Phone: -[facility] Work Phone: Start: 09-11-2021 AUDIT Tish Mora Furn ess Work Phone: -[facility] Work Phone: Start: 09-10-2021 Office outpatient vi sit 25 minutes Tish Deloris Furness Work Phone: -[facility] Work Phone: Start: 09-10-2021 ambulatory TISH Deloris FURNESS Facil [id number] Start: 09-06-2021 Chart Update Tish Deloris Furn ess Work Phone: -Medical [facility] Work Phone: Start: 06-12-2021 ambulatory TISH VAUGHN Facil [id number] Start: 04-23-2021 Office outpatient vi sit 25 minutes Tishsolange Vaughn Work Phone: [facility] Work Phone: Start: 04-23-2021 ambulatory TISHSOLANGE VAUGHN Facil [id number] Start: 01-18-2021 AUDIT Tish fuentes Work Phone: [facility] Work Phone: Start: 01-18-2021 Chart Update Tish fuentes Work Phone: [facility] Work Phone: Start: 01-18-2021 Office outpatient vi sit 25 minutes Tish Vaughn Work Phone: [facility] Work Phone: Start: 12-18-2020 Office outpatient vi sit 15 minutes Tish Vaughn Work Phone: [facility] Work Phone: Start: 11-16-2020 Office outpatient vi sit 15 minutes Tish Vaughn Work Phone: [facility] Work Phone: Start: 11-03-2020 EPV, Provider: Tish Vaughn, Status: Pen, Time: 10:40 AM Tish Vaughn Work Phone: [facility] Work Phone: Start: 11-03-2020 Office outpatient vi sit 25 minutes Tishsolange Wahless Work Phone: [facility] Work Phone: Start: 11-02-2020 Patient encounter procedure Tish Vaughn Work Phone: [facility] Work Phone: Start: 11-02-2020 AUDIT Tish fuentes Work Phone: [facility] Work Phone: Start: 10-25-2020 Office outpatient vi sit 25 minutes Tish Vaughn Work Phone: [facility] [facility] Work Phone: Start: 11-22-2014 Patient encounter status Fabiola Deleon MD Work Phone: [facility] Procedures Date Procedure Procedure Detail Performing Clinician Start: 10-06-2023 Screening digital br east tomosynthesis bi Glendy Deleon MD Work Phone: Start: 07-09-2023 Transvaginal echography Start: 09-27-2020 Lipid 1996 panel - S armida or Plasma Glendy Deleon MD Work Phone: Bilateral tubal ligation Rosario Mora Johana Work Phone: Plan of Treatment Date Care Activity Detail Author Start: 09-28-2028 Screening for malign ant neoplasm of cervix [facility] Start: 09-27-2025 Lipid panel Lipid Screening [facility] Start: 10-05-2024 Screening for malign ant neoplasm of breast Mammogram Screening [facility] Start: 09-06-2024 Diabetes Screening Diabetes Screenin g [facility] Start: 02-01-2024 Influenza vaccination Influenz a Vaccine (Season Ended) [facility] Start: 10-06-2023 End: 10-06-2023 Patient encounter procedure 10/06/2023 8:10 AM EDT Appointment Mammogram [address] [place] [address] Encounter for gynecological examination (general) (routine) without abnormal findings [Z01.419]; Encounter for screening mammogram for breast cancer [Z12.31 Mammogram Comment on above: Encounter for gyneco logical examination (general) (routine) without abnormal findings [Z01.419]; Encounter for screening mammogram for breast cancer [Z12.31 Start: 06-02-2023 Behavioral Health Screening Behavioral Health Screening [facility] Start: 01-31-2023 Covid-19 Vaccine ( season) Covid-19 Vaccine ( season) [facility] Start: 05-29-2022 PTRECHADUL, Provider : Toan Garcia, Status: Pen, Time: 8:30 AM PTRECHADUL, Provider: Toan Garcia, Status: Pen, Time: 8:30 AM [facility] Work Phone: Start: 05-24-2022 PTFUADULT4, Provider : Sharri Car, Status: Pen, Time: 8:30 AM PTFUADULT4, Provider: Sharri Car, Status: Pen, Time: 8:30 AM [facility] Work Phone: Start: 05-20-2022 PTFUADULT4, Provider : Sharri Car, Status: Pen, Time: 8:30 AM PTFUADULT4, Provider: Sharri Car, Status: Pen, Time: 8:30 AM [facility] Work Phone: Start: 05-17-2022 PTFUADULT4, Provider : Sharri Car, Status: Pen, Time: 10:00 AM PTFUADULT4, Provider: Sharri Car, Status: Pen, Time: 10:00 AM [facility] Work Phone: Start: 05-13-2022 PTFUADULT4, Provider : Sharri Car, Status: Pen, Time: 8:30 AM PTFUADULT4, Provider: Sharri Car, Status: Pen, Time: 8:30 AM [facility] Work Phone: Start: 05-10-2022 PTFUADULT4, Provider : Sharri Car, Status: Pen, Time: 9:15 AM PTFUADULT4, Provider: Sharri Car, Status: Pen, Time: 9:15 AM [facility] Work Phone: Start: 05-08-2022 PTFUADULT4, Provider : Sharri Car, Status: Pen, Time: 7:45 AM PTFUADULT4, Provider: Sharri Car, Status: Pen, Time: 7:45 AM [facility] Work Phone: Start: 05-02-2022 PTFUADULT4, Provider : Praveena Boswell, Status: Pen, Time: 10:45 AM PTFUADULT4, Provider: Praveena Boswell, Status: Pen, Time: 10:45 AM [facility] Work Phone: Start: 04-24-2022 PTEVAADULT, Provider : Denise Pop, Status: Pen, Time: 2:15 PM PTEVAADULT, Provider: Denise Pop, Status: Pen, Time: 2:15 PM -[facility] Work Phone: Start: 04-11-2022 EPV, Provider: Lboo Hernandez, Status: Pen, Time: 3:00 PM EPV, Provider: Lobo Hernandez, Status: Pen, Time: 3:00 PM -[facility] Work Phone: Start: 12-10-2021 EPV, Provider: Tish Vaughn, Status: Pen, Time: 8:20 AM EPV, Provider: Tish Vaughn, Status: Pen, Time: 8:20 AM [facility] Work Phone: Start: 09-27-2021 Hepatitis B surface antibody level LDL Cholesterol [facility] Start: 09-10-2021 EPV, Provider: Tish Vaughn, Status: Pen, Time: 9:20 AM EPV, Provider: Tish Vaughn, Status: Pen, Time: 9:20 AM [facility] Work Phone: Start: 05-23-2021 EPV, Provider: Tish Vaughn, Status: Pen, Time: 9:00 AM EPV, Provider: Tish Vaughn, Status: Pen, Time: 9:00 AM [facility] Work Phone: Start: 04-17-2021 EPV, Provider: Tish Vaughn, Status: Pen, Time: 10:00 AM EPV, Provider: Tish Vaughn, Status: Pen, Time: 10:00 AM [employer] [facility] Work Phone: Start: 01-25-2021 EPV, Provider: Tish Vaughn, Status: Pen, Time: 8:20 AM EPV, Provider: Tish Vaughn, Status: Pen, Time: 8:20 AM [employer] [facility] Work Phone: Start: 01-18-2021 EPV, Provider: Tish Vaughn, Status: Pen, Time: 9:20 AM EPV, Provider: Tish Vaughn, Status: Pen, Time: 9:20 AM [facility] Work Phone: Start: 12-18-2020 EPV, Provider: Tish Vaughn, Status: Pen, Time: 2:00 PM EPV, Provider: Tish Vaughn, Status: Pen, Time: 2:00 PM [facility] Work Phone: Start: 2020 Shingrix Vaccine (1 of 2) Shingrix Vaccine (1 of 2) [facility] Start: 11-06-2015 Screening for malign ant neoplasm of colon [facility] Start: 2010 Screening for malign ant neoplasm of breast Mammogram Screening [facility] Start: 2000 Screening for malign ant neoplasm of cervix HPV Testing [facility] Start: 11-06-1991 Screening for malign ant neoplasm of cervix Pap Testing [facility] Start: 1989 Hepatitis B Vaccine (1 of 3 - 19+ 3-dose series) Hepatitis B Vaccine (1 of 3 - 19+ 3-dose series) [facility] Start: 1989 Urine microalbumin profile DTaP,Tdap,Td Vaccine (1 - Tdap) [facility] Start: 1988 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 Disease Visit Annual PCP Team Chronic Disease Visit [facility] Start: 1988 BP Controlled (<130/80) BP Controlle d (<130/80) [facility] Start: 1988 Hepatitis C screening Hepatitis C Sc shekhar [facility] Start: 1988 HIV screening HIV Screening [facility] Start: 1976 Pneumococcal vaccination Pneumococcal Vaccine (1 of 2 - PCV) [facility] End: 10-28-2024 DBT Breast - bilateral screening TIERRA SCREENING W SHAYY Radiology Routine Encounter for gynecological examination (general) (routine) without abnormal findings Encounter for screening mammogram for breast cancer 1 Occurrences starting 09/29/2023 until 10/28/2024 [facility] Work Phone: Comment on above: 1 Occurrences starti ng 09/29/2023 until 10/28/2024 PAP TEST PAP TEST Lab Rou [facility]ackery Encounter for gynecological examination (general) (routine) without abnormal findings Encounter for screening for human papillomavirus (HPV) Pap smear for cervical cancer screening 09/29/2023 3:02 PM EDT [facility] Patient Education Anatomy of the Female Urinary Tract ED Diabetic Hyperglycemia ED Diet: Diabetes [facility] Work Phone: Patient referral [facility] Work Phone: Payers Date Payer Category Payer Self-pay 2020 Unknown [id number] 1970 Unknown [id number] 2.16. [id number] 1970 Unknown [id number] 2.16. [id number] 1970 Unknown [id number] 2.16. [id number] 1970 Unknown [id number] 2.16. [id number] 1970 Unknown [id number] 2.16. [id number] 1970 Unknown [id number] 2.16.8 [id number] 1970 Unknown [id number] 2.16.8 [id number] 1970 Unknown [id number] 2.16.8 [id number] 1970 Unknown [id number] 2.16.8 [id number] 1970 Unknown [id number] 2.16.8 [id number] 1970 Unknown [id number] 2.16.8 [id number] 1970 Unknown [id number] 2.16.8 [id number] Self-pay [id number] Unknown Unknown [id number] [id number] Unknown [id number] 2.16.8 [id number] Social History Date Type Detail Facility Start: 08-18-2023 End: 09-29-2023 Smoker Smoker [facility] Work Phone: Start: 07-09-2023 Tobacco smoking status [facility] Unknown if ever smoked [facility] Start: 09-18-2017 Cigars [facility] Start: 1970 Sex Assigned At Female W [facility] Start: 09-29-2023 Tobacco smoking status NHIS Occasional tobacco smoker [facility] History of tobacco use Cigar Smoker [facility] Start: 09-29-2023 Tobacco use and exposure Smokeless tobacco non-user [facility] Start: 09-29-2023 Alcohol intake Current drinke r of alcohol (finding) [facility] Start: 08-18-2023 End: 09-29-2023 Tobacco use panel [facility] National Score (1-100), lower number is lower risk 71 [facility] Start: 09-29-2023 Tobacco Comment Once a month [facility] Start: 09-29-2023 Alcohol Comment seldom [facility] Start: 1970 Sex Assigned At Not on file C [facility] Clinical Notes 11-16-2018 to 10-13-2023 Telephone Encounter - Sandy Castillo RN - 10/13/2023 11:46 AM EDTTelephone Encounter - Denny Michele MD - 10/13/2023 11:30 AM EDTLetter - Coordinator, Mammography - 10/06/2023 4:12 PM EDT Note Date & Type Note Facility 10-13-2023 Miscellaneous Notes Please send normal pap letter and reminder to f/u in 1 year for 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 Sandy Castillo RN Please inform patient that her recent pap and hpv tests were normal. F/u in one year and prn. Denny Michele MD documented in this encounter [facility] 10-13-2023 Telephone encounter Note Please send normal pap letter and reminder to f/u in 1 year for 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 Sandy Castillo RN [facility] 10-13-2023 Telephone encounter Note Please inform patient that her recent pap and hpv tests were normal. F/u in one year and prn. Denny Michele MD [facility] Work Phone: 10-06-2023 Miscellaneous Notes October 06, 2023 PID: [id number] Radha Luther [address] [place] [id number] Dear Ms. Luther, We are pleased to inform you that the results of your recent breast imaging exam on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
[2025-01-07 20:51] LABS: Color, Urine Yellow (Yellow); Glucose, Dipstick 1000 mg/dl (Normal); Ketone-Dipstick 5 mg/dl (Negative); Leukocyte Esterase-Dipstick Negative /ul (Negative); Nitrite-Dipstick Negative (Negative); Occult Blood-Urine Negative /ul (Negative); Protein-Dipstick 15 mg/dl (Negative); Specific Gravity, Urine 1.010 (1.002-1.030); Urine Bilirubin Dipstick Negative (Negative)
[2025-01-07 21:00] VITALS: BP 142/90; PULSE 70; RESP 18; O2SAT 98
[2025-01-07 21:01] LABS: AST(SGOT) 20 U/L (<=31); Alanine Aminotransfer ALT/SGPT 16 U/L (<=34); Albumin, Serum 4.3 g/dL (3.5-5.0); Alkaline Phosphatase 108 U/L (35-104); Anion Gap 15 (5-15); BUN 12 mg/dL (4-19); BUN/Creat Ratio 16.4 RATIO (10-20); Calcium,Total 9.6 mg/dL (7.6-11.0); Carbon Dioxide 21.4 mmol/L (21.0-32.0); Chloride 95 mmol/L (98-108); Estimated Creatinine Clearance 89.88 ml/min (50-250); Globulin 3.1 g/dL (2.2-4.2); Glucose 529 mg/dL (70-99); Lipase 34 U/L (13-75); Potassium 4.4 mmol/L (3.3-5.1)
--- NOTE | 2025-01-07 21:02 | ED.RN ---
Dr Quesada notified of critical blood sugar.
[2025-01-07 21:10] LABS: Red Blood Cells-Urine 0-5 SEEN /hpf (0-5)
[2025-01-07] MEDS: 0.9% Normal Saline (1000mL) 1,000 ML 1000 ML IV (21:10)
[2025-01-07 21:21] LABS: Troponin T High Sensitivity < 6 ng/L (<=14)
[2025-01-07 22:00] VITALS: BP 154/95; PULSE 75; RESP 15; O2SAT 97
[2025-01-07 22:28] LABS: Troponin T High Sens 2 HR < 6 ng/L (<=14)
[2025-01-07 22:44] VITALS: BP 162/100; PULSE 74; RESP 18; TEMP 36.7; O2SAT 97
== END 2025-01-07 22:46 | disposition home or self-care (01) ==
PROVIDERS: Emergency Provider Surgery; Visit Provider Surgery
DX: E11.65 Type 2 diabetes mellitus with hyperglycemia (principal); I10 Essential (primary) hypertension; I25.2 Old myocardial infarction; Z79.82 Long term (current) use of aspirin; Z79.84 Long term (current) use of oral hypoglycemic drugs
CPT/HCPCS: 71046; 80053; 81001; 82962; 83690; 84484; 85025; 85379; 93005; 96361; 96374; 99284; A4216